=== PATIENT | female | born 1975 | race Two or more races ===

== ENCOUNTER 2018-08-24 08:31 | Emergency (ER) | payer MEDICAID ==
[~2018-08-24] VITALS: Ht 134.6 cm; Wt 70.3 kg
[2018-08-24] MEDS ORDERED: PANTOPRAZOLE 40 MG/10 ML VIAL IV STA (09:03)
[2018-08-24] MEDS ORDERED: SODIUM CHLORIDE 0.9% 1,000 ML IVB ONE (09:03)
[2018-08-24 09:13] VITALS: BP 128/83
[2018-08-24] MEDS ORDERED: ONDANSETRON HCL 4 MG/2 ML VIAL IV ONE (09:15)
[2018-08-24] MEDS ORDERED: MORPHINE SULFATE 4 MG/ML SYR/VIAL IV ONE (09:15)
[2018-08-24 09:20] LABS: Basophils # (auto) 0 uL; Basophils % (auto) 0.4 % (0.0-2.0); Eosinophils # (auto) 0.1 uL; Eosinophils % (auto) 1.6 % (0.0-7.0); Hematocrit 38.7 % (36.0-46.0); Hemoglobin 13.1 g/dL (12.2-16.2); Lymphocytes # (auto) 1.1 uL; Lymphocytes % (auto) 13.1 % (10.0-50.0); Mean Corpuscular Hemoglobin 28.6 pg (28.0-32.0); Mean Corpuscular Hgb Conc. 33.8 g/dL (32.0-36.0); Mean Corpuscular Volume 84.5 fL (80.0-100.0); Monocytes # (auto) 0.6 uL; Monocytes % (auto) 6.8 % (0.0-12.0); Neutrophils # (auto) 6.7 uL; Neutrophils % (auto) 78.1 % (37.0-80.0); Platelet Count (auto) 237 10^3/uL (140-450); Red Blood Cells 4.58 10^6/uL (4.0-5.20); Red Cell Distribution Width 13.2 % (11.8-14.3); White Blood Cell 8.5 10^3/uL (4.4-10.8)
[2018-08-24 09:26] LABS: Urine Bacteria FEW /hpf (None Seen); Urine Blood Negative /uL (Negative); Urine Mucus FEW (None Seen); Urine Specific Gravity 1.018 (1.001-1.035); Urine WBC 1 /hpf (0 - 5)
[2018-08-24 09:33] LABS: INR 0.88 (0.9-1.15); Partial Thromboplastin Time 21.9 sec (23.78-33.04); Prothrombin Time 9.5 sec (9.27-12.13)
[2018-08-24 09:40] LABS: Albumin 3.8 g/dL (3.4-5.0); BUN/Creatinine Ratio 16.7; Bilirubin, Total 0.3 mg/dL (0.2-1.0); Calcium 8.8 mg/dL (8.5-10.1); Potassium 3.7 mmol/L (3.5-5.1); Total Protein 7.6 g/dL (6.4-8.2)
== END 2018-08-24 11:11 | disposition home or self-care (01) ==
LOC: ER 08:31
DX: K29.70 Gastritis, unspecified, without bleeding (principal); E11.9 Type 2 diabetes mellitus without complications; E78.5 Hyperlipidemia, unspecified; Z98.51 Tubal ligation status; Z88.8 Allergy status to other drugs, medicaments and biological substances
CPT/HCPCS: 36415; 76705; 80053; 81001; 82150; 82962; 83690; 83735; 84702; 85025; 85610; 85730; 94761; 96361; 96374; 96375; 99285; C9113; J2270; J2405; J7030

== ENCOUNTER 2021-06-04 03:08 | Emergency (ER) | payer MEDICAID ==
[~2021-06-04] VITALS: Ht 157.5 cm; Wt 70.8 kg
[2021-06-04 03:35] LABS: Basophils # (auto) 0 10 ^3/uL (0-0.2); Basophils % (auto) 0.8 % (0.0-2.0); Eosinophils # (auto) 0.1 10 ^3/uL (0-0.8); Eosinophils % (auto) 1.5 % (0.0-7.0); Hematocrit 39.7 % (36.0-46.0); Hemoglobin 13.8 g/dL (12.2-16.2); Lymphocytes % (auto) 36.1 % (10.0-50.0); Mean Corpuscular Hemoglobin 27.9 pg (28.0-32.0); Mean Corpuscular Hgb Conc. 34.8 g/dL (32.0-36.0); Mean Corpuscular Volume 80.1 fL (80.0-100.0); Monocytes # (auto) 0.4 10 ^3/uL (0-1.3); Monocytes % (auto) 7.8 % (0.0-12.0); Neutrophils # (auto) 2.9 10 ^3/uL (1.6-8.6); Neutrophils % (auto) 53.8 % (37.0-80.0); Platelet Count (auto) 244 10^3/uL (140-450); Red Blood Cells 4.96 10^6/uL (4.0-5.20); Red Cell Distribution Width 15.4 % (11.8-14.3); White Blood Cell 5.5 10^3/uL (4.4-10.8)
[2021-06-04 03:54] LABS: Amylase 46 U/L (25-115); Lipase 241 U/L (73-393)
[2021-06-04 05:01] LABS: Urine Amorphous Crystal MANY /hpf (None Seen); Urine Bacteria FEW /hpf (None Seen); Urine Blood Negative /uL (Negative); Urine Specific Gravity 1.029 (1.001-1.035); Urine WBC 3 /hpf (0 - 5)
[2021-06-04 05:42] LABS: Albumin 4.2 g/dL (3.4-5.0); Calcium 8.9 mg/dL (8.5-10.1); Potassium 4.1 mmol/L (3.5-5.1)
[2021-06-04 05:47] LABS: Bilirubin, Total 0.3 mg/dL (0.2-1.0)
[2021-06-04] MEDS ORDERED: SODIUM CHLORIDE 0.9% 1,000 ML IV ONE ×2 (07:15)
[2021-06-04 08:05] VITALS: BP 145/77
== END 2021-06-04 08:27 | disposition home or self-care (01) ==
LOC: ER 03:08
DX: R73.9 Hyperglycemia, unspecified (principal); R51.9 Headache, unspecified; Z88.6 Allergy status to analgesic agent; Z98.51 Tubal ligation status
CPT/HCPCS: 36415; 80053; 81001; 82150; 82962; 83036; 83690; 85025; 85049; 96360; 99285; J7030

== ENCOUNTER 2022-02-11 12:17 | Emergency (ER) | payer MEDICAID ==
[~2022-02-11] VITALS: Ht 152.4 cm; Wt 66.2 kg
[2022-02-11] MEDS ORDERED: ONDANSETRON HCL 4 MG/2 ML VIAL IV ONE (12:45)
[2022-02-11] MEDS ORDERED: SODIUM CHLORIDE 0.9% 500 ML IVB ONE (12:45)
[2022-02-11] MEDS ORDERED: PANTOPRAZOLE 40 MG/10 ML VIAL INJ IV ONE (12:45)
[2022-02-11 12:55] LABS: Urine Bacteria NONE SEEN /hpf (None Seen); Urine Blood Negative /uL (Negative); Urine Mucus FEW (None Seen); Urine Specific Gravity 1.042 (1.001-1.035); Urine WBC 1 /hpf (0 - 5)
[2022-02-11 13:28] LABS: Basophils # (auto) 0.2 10 ^3/uL (0-0.2); Basophils % (auto) 2.1 % (0.0-2.0); Eosinophils # (auto) 0 10 ^3/uL (0-0.8); Eosinophils % (auto) 0.2 % (0.0-7.0); Hematocrit 39.8 % (36.0-46.0); Hemoglobin 13.7 g/dL (12.2-16.2); Lymphocytes # (auto) 0.9 10 ^3/uL (0.4-5.4); Mean Corpuscular Hemoglobin 28.3 pg (28.0-32.0); Mean Corpuscular Hgb Conc. 34.4 g/dL (32.0-36.0); Mean Corpuscular Volume 82.3 fL (80.0-100.0); Monocytes # (auto) 0.4 10 ^3/uL (0-1.3); Monocytes % (auto) 5.1 % (0.0-12.0); Neutrophils # (auto) 6.4 10 ^3/uL (1.6-8.6); Neutrophils % (auto) 81.6 % (37.0-80.0); Nucleated Red Blood Cells % 0.3 %; Red Blood Cells 4.83 10^6/uL (4.0-5.20); Red Cell Distribution Width 13.3 % (11.8-14.3); White Blood Cell 7.8 10^3/uL (4.4-10.8)
[2022-02-11 13:46] LABS: Albumin 3.9 g/dL (3.4-5.0); Calcium 9.2 mg/dL (8.5-10.1); Potassium 4.2 mmol/L (3.5-5.1)
[2022-02-11 13:49] LABS: BUN/Creatinine Ratio 20.2
[2022-02-11 13:49] LABS: Amylase 37 U/L (25-115); Lipase 95 U/L (73-393)
[2022-02-11 13:52] LABS: Bilirubin, Total 0.5 mg/dL (0.2-1.0); Total Protein 7.7 g/dL (6.4-8.2)
[2022-02-11 14:21] LABS: INR 0.97 (0.9-1.15); Partial Thromboplastin Time 23.4 sec (23.6-33.0)
[2022-02-11] MEDS ORDERED: PANT40TA2 PO (15:11)
[2022-02-11] MEDS ORDERED: ONDA-144 PO (15:11)
[2022-02-11] MEDS: MORPHINE SULFATE 4 MG/ML SYR/VIAL IV ONE ×2 (15:26→15:41)
[2022-02-11 16:44] VITALS: BP 118/74
== END 2022-02-11 16:50 | disposition home or self-care (01) ==
LOC: ER 12:17
DX: R10.11 Right upper quadrant pain (principal); K21.9 Gastro-esophageal reflux disease without esophagitis; R11.2 Nausea with vomiting, unspecified; E11.9 Type 2 diabetes mellitus without complications; E78.5 Hyperlipidemia, unspecified; Z88.8 Allergy status to other drugs, medicaments and biological substances
CPT/HCPCS: 36415; 76705; 80053; 81001; 82150; 83690; 85025; 85610; 85730; 93005; 96361; 96374; 96375; 99285; C9113; J2270; J2405; J7040

== ENCOUNTER 2024-02-21 00:26 | Inpatient (IN) | payer MEDICAID ==
[~2024-02-21] VITALS: Ht 152.4 cm; Wt 69.0 kg
[~2024-02-21 00:26] MED LIST: ONDA-144 PO; PANT40TA2 PO
[2024-02-21 00:59] LABS: Urine WBC None Seen /hpf (0 - 5)
[2024-02-21 01:05] LABS: Urine Bacteria NONE SEEN /hpf (None Seen); Urine Blood Negative /uL (Negative); Urine Clarity Clear (Clear); Urine Color Colorless (Yellow); Urine Protein, UAD Negative (Negative); Urine Specific Gravity 1.003 (1.001-1.035); Urine Urobilinogen Normal (Negative); Urine pH 6.5 (5.0-8.0)
[2024-02-21] MEDS: MORPHINE SULFATE 4 MG/ML SYR/VIAL IM ONE (01:41)
[2024-02-21] MEDS: ONDANSETRON HCL 4 MG/2 ML VIAL IM ONE (01:41)
[2024-02-21 02:17] LABS: Basophils # (auto) 0 10 ^3/uL (0-0.2); Basophils % (auto) 0.3 % (0.0-2.0); Eosinophils # (auto) 0 10 ^3/uL (0-0.8); Eosinophils % (auto) 0.3 % (0.0-7.0); Hematocrit 38.2 % (36.0-46.0); Hemoglobin 12.8 g/dL (12.2-16.2); Lymphocytes # (auto) 1.9 10 ^3/uL (0.4-5.4); Lymphocytes % (auto) 20.6 % (10.0-50.0); Mean Corpuscular Hemoglobin 27.5 pg (28.0-32.0); Mean Corpuscular Hgb Conc. 33.6 g/dL (32.0-36.0); Mean Corpuscular Volume 81.9 fL (80.0-100.0); Monocytes # (auto) 0.5 10 ^3/uL (0-1.3); Monocytes % (auto) 5.6 % (0.0-12.0); Neutrophils # (auto) 6.9 10 ^3/uL (1.6-8.6); Neutrophils % (auto) 73.2 % (37.0-80.0); Red Blood Cells 4.67 10^6/uL (4.0-5.20); Red Cell Distribution Width 13.2 % (11.8-14.3); White Blood Cell 9.4 10^3/uL (4.4-10.8)
[2024-02-21] MEDS: SODIUM CHLORIDE 0.9% 1,000 ML IV ONE (02:27)
[2024-02-21 02:29] LABS: Alanine Aminotransferase 51 U/L (7-40); Albumin 4.8 g/dL (3.2-4.8); Alkaline Phosphatase 77 U/L (46-116); Anion Gap 8 (5-15); Aspartate Aminotransferase 22 U/L (13-40); BUN/Creatinine Ratio 15.7 (10.0-20.0); Bilirubin, Total 0.7 mg/dL (0.2-1.0); Blood Urea Nitrogen 11 mg/dL (9-23); Calcium 10.2 mg/dL (8.7-10.4); Carbon Dioxide 24 mmol/L (20-30); Chloride 104 mmol/L (98-107); Glucose 131 mg/dL (74-106); Potassium 3.6 mmol/L (3.5-5.1); Sodium 136 mmol/L (136-145); Total Protein 7.5 g/dL (5.7-8.2)
[2024-02-21 02:31] LABS: Lactic Acid w/Reflex 2.6 mmol/L (0.4-2.0)
[2024-02-21 02:33] LABS: INR 0.97 (0.9-1.15); Partial Thromboplastin Time 27.1 SEC (24.5-34.5); Prothrombin Time 10.2 sec (9.3-11.8)
[2024-02-21] MEDS: PIPERACILLIN-TAZO 4.5GM 100 ML IV ONE (02:51)
[2024-02-21] MEDS: PIPERACILLIN-TAZOB 2.25GM 50 ML IV ONE ×2 (02:59→06:19)
[2024-02-21] MEDS: HYDROmorphone HCL 2 MG/ML VL/or syr IV ONE (03:00)
[2024-02-21 06:00] VITALS: PULSE 95; RESP 18; O2SAT 100
[2024-02-21] MEDS: SODIUM CHLORIDE 0.9% 1,000 ML IV SCH (06:19)
[2024-02-21] MEDS: ONDANSETRON HCL 4 MG/2 ML VIAL IV PRN (08:18)
[2024-02-21] MEDS: MORPHINE SULFATE INJ 2 MG/ml SYRG IV PRN (08:19)
[2024-02-21] MEDS ORDERED: METF-372 PO (09:57)
[2024-02-21] MEDS ORDERED: LORA-483 PO (09:57)
[2024-02-21] MEDS ORDERED: HYDR200T36 PO (10:00)
[2024-02-21] MEDS ORDERED: KETAMINE 50mg/ML 10ml Vial 10 ML ONE (11:03)
[2024-02-21] MEDS ORDERED: MEPERIDINE HCL (50 MG/ML) 1 ML VIAL ONE (11:03)
[2024-02-21] MEDS ORDERED: MIDAZOLAM HCL 2MG/2ML 2ml VIAL (1mg/ml) ONE (11:03)
[2024-02-21] MEDS ORDERED: fentaNYL CITRATE 100 MCG/2 ML VL ONE (11:03)
[2024-02-21] MEDS ORDERED: ROCURONIUM 10MG/ML 10ML VIAL IV ONE (11:04)
[2024-02-21] MEDS ORDERED: DexAMETHasone SOD PHOS 10MG/1ML VIAL INJ ONE (11:04)
[2024-02-21] MEDS ORDERED: PROPOFOL 10 MG/ML 20 ML IV ONE (11:04)
[2024-02-21] MEDS ORDERED: ONDANSETRON HCL 4 MG/2 ML VIAL ONE (11:04)
[2024-02-21] MEDS ORDERED: SODIUM CHLORIDE LOCK 10 ML ONE (11:04)
[2024-02-21] MEDS ORDERED: NEOSTIGMINE 1 MG/ML INJ (10mg/10ML VIAL) ONE (11:04)
[2024-02-21] MEDS ORDERED: GLYCOPYRROLATE 0.2 MG/ML 1ML VIAL ONE (11:04)
[2024-02-21 13:00] VITALS: BP 112/60; PULSE 90; RESP 17; TEMP 98.3; O2SAT 98
[2024-02-21] MEDS ORDERED: HYDROmorphone HCL 2 MG/ML VL/or syr IV PRN ×2 (13:00)
[2024-02-21] MEDS ORDERED: MORPHINE SULFATE INJ 2 MG/ml SYRG IV PRN (13:00)
[2024-02-21] MEDS: PIPERACILLIN-TAZOB 3.375GM 100 ML IV SCH (13:03)
[2024-02-21] MEDS ORDERED: SUGAMMADEX 200mg/2ml Vial (100MG/ML) IV ONE (14:20)
[2024-02-21 14:35] VITALS: PULSE 89; RESP 13; O2SAT 97
[2024-02-21 17:00] VITALS: BP 127/75; PULSE 95; RESP 17; TEMP 98; O2SAT 97
[2024-02-21] MEDS: METOCLOPRAMIDE HCL 5MG/ml INJ 2ml VIAL IV ONE (17:25)
[2024-02-21] MEDS: ACCU-CHEK COMFORT CURVE STRIP VI ONE (17:26)
[2024-02-21] MEDS: D5W/SOD CHL 0.45%/KCL 20MEQ 1,000 ML IV SCH (17:26)
[2024-02-21 21:00] VITALS: BP 129/59; PULSE 68; RESP 14; TEMP 97.8; O2SAT 95
[2024-02-22] VITALS (8 sets, daily range): BP systolic 105–133; BP diastolic 62–92; PULSE 75–104; RESP 14–20; TEMP 97.5–98.5; O2SAT 97–100
[2024-02-22 06:08] LABS: Basophils # (auto) 0 10 ^3/uL (0-0.2); Basophils % (auto) 0.1 % (0.0-2.0); Eosinophils # (auto) 0 10 ^3/uL (0-0.8); Hematocrit 33.8 % (36.0-46.0); Hemoglobin 11.3 g/dL (12.2-16.2); Lymphocytes # (auto) 0.9 10 ^3/uL (0.4-5.4); Lymphocytes % (auto) 13.5 % (10.0-50.0); Mean Corpuscular Hemoglobin 27.9 pg (28.0-32.0); Mean Corpuscular Hgb Conc. 33.6 g/dL (32.0-36.0); Monocytes # (auto) 0.5 10 ^3/uL (0-1.3); Monocytes % (auto) 6.6 % (0.0-12.0); Neutrophils # (auto) 5.6 10 ^3/uL (1.6-8.6); Neutrophils % (auto) 79.8 % (37.0-80.0); Red Blood Cells 4.06 10^6/uL (4.0-5.20); Red Cell Distribution Width 13.2 % (11.8-14.3)
[2024-02-22 06:26] LABS: Alanine Aminotransferase 33 U/L (7-40); Albumin 4.1 g/dL (3.2-4.8); Alkaline Phosphatase 63 U/L (46-116); Anion Gap 4 (5-15); Aspartate Aminotransferase 9 U/L (13-40); BUN/Creatinine Ratio 7.6 (10.0-20.0); Bilirubin, Total 0.5 mg/dL (0.2-1.0); Blood Urea Nitrogen 5 mg/dL (9-23); Calcium 8.8 mg/dL (8.7-10.4); Carbon Dioxide 26 mmol/L (20-30); Chloride 110 mmol/L (98-107); Glucose 179 mg/dL (74-106); Potassium 4.1 mmol/L (3.5-5.1); Sodium 140 mmol/L (136-145); Total Protein 6.5 g/dL (5.7-8.2)
[2024-02-23 01:00] VITALS: BP 130/60; PULSE 86; RESP 21; TEMP 98.4; O2SAT 98
[2024-02-23 05:00] VITALS: BP 114/70; PULSE 70; RESP 20; TEMP 97.6; O2SAT 98
[2024-02-23 08:00] VITALS: PULSE 87; RESP 16; O2SAT 99
[2024-02-23 09:16] VITALS: BP 122/78; PULSE 87; RESP 16; TEMP 97.9; O2SAT 99
[2024-02-23] MEDS ORDERED: LEVO500T91 PO (10:31)
[2024-02-23] MEDS ORDERED: METR-344 PO (10:31)
[2024-02-23 11:02] VITALS: BP 122/78; PULSE 87; RESP 16; TEMP 97.9; O2SAT 99
[2024-02-23 13:29] VITALS: BP 128/78; PULSE 77; RESP 17; TEMP 98.2; O2SAT 98
== END 2024-02-23 13:57 | disposition home or self-care (01) | DRG 234 ==
LOC: ER 00:26 → OVERFLOW 04:35 → CENTRAL 10:18
PROVIDERS: ADMIT Nurse Practitioner; ATTEND Internal Medicine
PROC: 0DTJ4ZZ Resection of Appendix, Percutaneous Endoscopic Approach (ICD-10-PCS; principal; 2024-02-21 13:58)
DX: K35.80 Unspecified acute appendicitis (principal); R16.0 Hepatomegaly, not elsewhere classified; E11.9 Type 2 diabetes mellitus without complications; K59.00 Constipation, unspecified; E78.5 Hyperlipidemia, unspecified; Z82.49 Family history of ischemic heart disease and other diseases of the circulatory system; Z83.3 Family history of diabetes mellitus; Z79.84 Long term (current) use of oral hypoglycemic drugs; Z88.6 Allergy status to analgesic agent
CPT/HCPCS: 36415; 74176; 76705; 80053; 81001; 82962; 83605; 84702; 85025; 85610; 85730; 86850; 86900; 86901; 96365; 96366; 96372; 96375; G0378; J1100; J2250; J2405; J2543; J2704

== ENCOUNTER 2024-10-26 00:08 | Emergency (ER) | payer MEDICAID ==
[~2024-10-26] VITALS: Ht 152.4 cm; Wt 72.0 kg
[~2024-10-26 00:08] MED LIST changes: +HYDR200T36 PO; +LEVO500T91 PO; +LORA-483 PO; +METF-372 PO; +METR-344 PO
[2024-10-26 00:37] LABS: Urine Bacteria None Seen /hpf (None Seen)
[2024-10-26 00:43] LABS: Urine Blood Negative /uL (Negative); Urine Clarity Clear (Clear); Urine Color Light-Yellow (Yellow); Urine Protein, UAD Negative (Negative); Urine Specific Gravity 1.015 (1.001-1.035); Urine Urobilinogen Normal (Negative); Urine WBC 1 /hpf (0 - 5); Urine pH 6.5 (5.0-9.0)
[2024-10-26 00:51] VITALS: BP 120/88; PULSE 99; RESP 18; TEMP 98; O2SAT 98
[2024-10-26] MEDS: ONDANSETRON ODT 4 MG TAB PO ONE (00:51)
[2024-10-26] MEDS: KETOROLAC TROMETH 60MG/2ML VIAL IM ONE (00:58)
--- NOTE | 2024-10-26 01:19 | DVH ---
Exam: CT CT AB PEL WO CON-NO ORAL OR IV History: Left sided flank pain Comparison Study: CT CT AB PEL WO CON-NO ORAL OR IV on DOS: 02/21/24 Technique: Multidetector spiral CT of the abdomen was performed from lung bases to pubic symphysis. Imaging was performed without IV contrast. Axial, coronal and sagittal multiplanar reformats were ob tained from the axial data set by the technologist. Radiation Dose : 1. Abdomen/Pelvis: CTDIvol 9.53 mGy, DLP 593 mGy*cm. Findings: Evaluation of solid organs is limited due to lack of intravenous contrast use. Lung Bases: No acute or significant lung base finding. Normal heart size. No pleural or pericardial effusion. Liver: The liver is enlarged measuring up to 21 cm. No focal lesions. Diffuse steatosis. Wedge-shape d hyperdensity in the posterior right hepatic lobe measures up to 5.5 cm. Gallbladder and Biliary Tree: Unremarkable Spleen: Unremarkable Pancreas: The pancreas is grossly normal in appearance. Adrenal Glands: Unremarkable Kidneys: Kidneys are grossly normal without calculi or hydronephrosis. Bladder: Grossly unremarkable for degree of distention. Bowel: The stomach is grossly normal in appearance. Small bowel and colon are normal in caliber and d istribution. The appendix is not visualized; however, no secondary findings of acute appendicitis id entified. Ascites: Absent Lymphadenopathy: No mesenteric, retroperitoneal or periportal lymphadenopathy. Abdominal Wall and Mesentery: Unremarkable. Vasculature: The visualized abdominal aorta is normal in size and caliber. Evaluation of abdominal a nd pelvic vessels is limited due to lack of intravenous contrast. Pelvic Organs: Unremarkable Musculoskeletal: No aggressive focal bony lesions, acute fractures or dislocation. IMPRESSION: 1. No acute abdominal or pelvic findings. 2. Wedge-shaped in the posterior right hepatic lobe measures up to 4.5 cm, of unclear etiology. Thomas mmend triple phase abdominal CT for further evaluation. 3. Hepatomegaly with steatosis. Radiation optimization: All CT scans at this facility use at least one of these dose optimization shalini hniques: automated exposure control mA and/or kV adjustment per patient size (includes targeted exam s where dose is matched to clinical indication) or iterative reconstruction.
[2024-10-26] MEDS ORDERED: ACET500T58 PO (01:28)
[2024-10-26] MEDS ORDERED: ZOFR4T PO (01:28)
--- NOTE | 2024-10-26 01:29 | ED.PDOC ---
General HPI Comments This patient is a pleasant but morbidly obese 49-year-old [place]ian-speaking only female who arrives to the ED today for evaluation of left-sided flank pain concerns that began three days ago and have continued. Patient additionally complains of some urinary discomfort. Patient states pain and chills throughout. Patient denies any fever nausea or vomiting. Vital signs were stable on arrival. Chief Complaint: Back Pain Time Seen by MD: 00:14 Primary Care Provider: NONE Reviewed notes: Nurses Notes Allergies: Coded Allergies: Ibuprofen (Verified Allergy, Unknown, 08/24/18) Home Meds Active Scripts Levofloxacin Hemihydrate (LEVAQUIN 500 MG) 500 Mg Tab, 1 TAB PO DAILY, #7 TAB Prov:ALINA PARISI MD 02/23/24 Metronidazole (Flagyl) 500 Mg Tab, 1 TAB PO TID, #21 TAB Prov:ALINA PARISI MD 02/23/24 Ondansetron (Zofran) 4 Mg Tab, 1 TAB PO Q6HR, #20 TAB Prov:NIURKA OSBORNE MD 02/11/22 Pantoprazole Sodium Sesquihydr (Protonix) 40 Mg Tab, 40 MG PO DAILY, #30 TAB Prov:NIURKA OSBORNE MD 02/11/22 Reported Medications Hydroxychloroquine Sulfate (Hydroxychloroquine Sulfat) 200 Mg Tab, 1 TAB PO DAILY 02/21/24 Loratadine (CLARITIN TABLET) 10 Mg Tb, 1 TAB PO DAILYPRN PRN for allergies 02/21/24 Metformin Hydrochloride (Metformin Hcl) 1,000 Mg Tab, 1 TAB PO BID 02/21/24 Information Source: Patient, Friend Mode of Arrival: Ambulatory Severity: Moderate Timing: Days Duration: Since onset Prehospital treatment: None Onset: Spontaneous Symptoms: Dysuria History of: None Location: (L)Flank associated signs and symptoms: Flank Pain, Other (Chills) Past Medical History PAST MEDICAL HISTORY: DM, High Lipids Surgical History: BTL, 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 Pertinent CHILDREN'S INSTITUTION ATTENDANT History Family History Family History: Family hx of DM, Family hx of heart adán, Family hx of HTN Social History Smoker: Non-Smoker Alcohol: Denies ETOH Use Drugs: Denies Drug Use Lives In: Home Constitutional: reports: chills; denies: diaphoresis, fatigue, fever, malaise, sweats, weakness, others EENTM: denies: blurred vision, double vision, ear bleeding, ear discharge, ear drainage, ear pain, ear ringing, eye pain, eye redness, hearing loss, mouth pain, mouth swelling, nasal discharge, nose bleeding, nose congestion, nose pain, photophobia, tearing, throat pain, throat swelling, voice changes, others Respiratory: denies: cough, hemoptysis, orthopnea, SOB at rest, shortness of breath, SOB with excertion, stridor, wheezing, others Cardiovascular: denies: chest pain, dizzy spells, diaphoresis, Dyspnea on exertion, edema, irregular heart beat, left arm pain, lightheadedness, palpi tations, PND, syncope, others Gastrointestinal: denies: abdomen distended, abdominal pain, blood streaked bowels, constipated, diarrhea, dysphagia, difficulty swallowing, hematemesis, melena, nausea, poor appetite, poor fluid intake, rectal bleeding, rectal pain, vomiting, others Genitourinary: reports: flank pain; denies: abnormal vagina bleeding, burning, dyspareunia, dysuria, frequency, hematuria, incontinence, pain, , vagina discharge, urgency, others Neurological: denies: dizziness, fainting, headache, left sided numbness, left sided weakness, numbness, paresthesia, pre-existing deficit, right sided numbness, right sided weakness, seizure, speech problems, tingling, tremors, weakness, others Musculoskeletal: denies: back pain, gout, joint pain, joint swelling, muscle pain, muscle stiffness, neck pain, others Integumetry: denies: bruises, change in color, change in hair/nails, dryness, laceration, lesions, lumps, rash, wounds, others Allergic/Immunocompromised: denies: Difficulty Healing, Frequent Infections, Hives, Itching, others Hematologic/Lymphatic: denies: anemia, blood clots, easy bleeding, easy bruising, swollen glands, others Endocrine: denies: excessive hunger, excessive sweating, excessive thirst, excessive urination, flushing, intolerance to cold, intolerance to heat, unexplained weight gain, unexplained weight loss, others Psychiatric: denies: anxiety, bipolar disorder, depression, hopeless, panic disorder, schizophrenia, sleepless, suicidal, others Physical Exam General Appearance: Moderate Distress (Due to left-sided flank pain concerns.), Obese HEENT: Normal ENT Inspection, Pharynx Normal, TMs Normal Neck: Full Range of Motion, Non-Tender, Normal, Normal Inspection Respiratory: Chest Non-Tender, Lungs Clear, No Accessory Muscle Use, No Respiratory Distress, Normal Breath Sounds Cardiovascular: No Edema, No JVD, No Murmur, No Gallop, Normal Peripheral Pulses, Regular Rate/Rhythm Breast Exam: Deferred Gastrointestinal: Other (Diffuse left-sided CVA tenderness. Heel drop test was unremarkable. 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 Was a procedure done?: No Differential Diagnosis Kidney stone (Female): Other (Kidney stone, pyelonephritis, UTI, musculoskeletal strain) X-Ray, Labs, Meds, VS Vital Signs Date Time Temp Pulse Resp B/P (MAP) Pulse Ox O2 Delivery O2 Flow Rate FiO2 10/26/24 00:51 99 18 98 Room Air 10/26/24 00:51 98.0 99 18 120/88 (99) 98 98.0 10/26/24 00:16 98.0 99 18 120/88 (99) 98 Lab Test 10/26/24 00:15 Range/Units Urine Color Light-yellow Yellow Urine Clarity Clear Clear Urine pH 6.5 5.0-9.0 Urine Specific [place] 1.015 1.001-1.035 Urine Protein Negative Negative Urine Ketones Negative Negative Urine Blood Negative Negative /uL Urine Nitrite Negative Negative Urine Bilirubin Negative Negative Urine Urobilinogen Normal Negative mg/dL Urine Leukocyte Esterase Trace Negative /uL Urine RBC 1 0 - 4 /hpf Urine WBC 1 0 - 5 /hpf Urine Squamous Epithelial Cells Few <5 /hpf Urine Bacteria None seen None Seen /hpf Urine Glucose Normal Normal mg/dL Current Medications Medications (Trade) Dose Ordered Sig/Annmarie Route Start Time Stop Time Status Last Admin Ketorolac Tromethamine (Toradol Injection) 30 mg ONCE ONCE IM 10/26/24 00:30 10/26/24 00:31 DC 10/26/24 00:58 X-Ray, Labs, Meds, VS Comment All studies performed the ED were evaluated by me personally. Urine was unremarkable for any UTI or pyelonephritis. CT imaging of the abdomen was unremarkable for any kidney stone formation or hydronephrosis. Patient appears to be suffering from a musculoskeletal back strain concern. Advised patient utilize medication as needed for symptomatic relief. Time of 1ST Reevaluation: Reevaluation 1ST: Improved Consultation: PCP Patient Education/Counseling: Diagnosis, Treatment Family Education/Counseling: Diagnosis, Treatment Departure 1 Departure Time of Disposition: Impression: Primary Impression: Low back pain Disposition: HOME / SELF CARE / HOMELESS Condition: Stable Additional Instructions: Advised patient utilize pain medication as needed for symptomatic relief. If symptoms continue, patient will need to follow up with primary care provider for continued evaluation. e-Prescriptions Ondansetron Odt 4MG Tab (ZOFRAN PO) 4 Mg Tb 4 MG PO Q6HP PRN, #15 TAB ODT TAB-DISSOLVE IN MOUTH, THEN SWALLOW Prov: DEE DEE ABREU PAC 10/26/24 Acetaminophen (Acetaminophen) 500 Mg Tab 500 MG PO Q4HP PRN, #20 TAB Prov: DEE DEE ABREU PAC 10/26/24 Discharged With: Self, Friend Critical Care Note Critical Care Time?: No Stability Stability form required: No Heart Score Heart Score: Heart Score Response (Comments) Value History N/A 0 EKG N/A 0 Age N/A 0 Risk Factors N/A 0 Troponin N/A 0 Total 0 DEE DEE ABREU PAC Oct 26, 2024 01:29
== END 2024-10-26 02:10 | disposition home or self-care (01) ==
LOC: ER 00:08
DX: M54.59 Other low back pain (principal); E11.9 Type 2 diabetes mellitus without complications; E78.5 Hyperlipidemia, unspecified; Z79.899 Other long term (current) drug therapy; Z88.6 Allergy status to analgesic agent; Z98.890 Other specified postprocedural states
CPT/HCPCS: 74176; 81001; 96372; 99285; J1885

== ENCOUNTER 2025-03-28 22:26 | Emergency (ER) | payer MEDICAID ==
[~2025-03-28] VITALS: Ht 154.9 cm; Wt 69.9 kg
[~2025-03-28 22:26] MED LIST changes: +ACET500T58 PO; +ZOFR4T PO
--- NOTE | 2025-03-28 22:49 | ED.PDOC ---
GI ASSESSMENT HPI Comments 49-year-old female came to ER due to pelvic pain. Patient states for the past 3 days, she has been experiencing lower back pains, suprapubic abdominal pains, nausea and headaches. Denies any urinary symptoms such as dysuria or hematuria. Denies any vaginal bleeding. Chief Complaint: Pelvic Time Seen by MD: 22:49 Primary Care Provider: NONE Reviewed Notes: Nurses Notes Allergies: Coded Allergies: Ibuprofen (Verified Allergy, Unknown, 08/24/18) Home Meds Active Scripts Ondansetron Odt 4MG Tab (ZOFRAN PO) 4 Mg Tb, 4 MG PO Q6HP PRN, #15 TAB ODT TAB-DISSOLVE IN MOUTH, THEN SWALLOW Prov:DEE DEE ABREU PAC 10/26/24 Acetaminophen (Acetaminophen) 500 Mg Tab, 500 MG PO Q4HP PRN, #20 TAB Prov:DEE DEE ABREU PAC 10/26/24 Levofloxacin Hemihydrate (LEVAQUIN 500 MG) 500 Mg Tab, 1 TAB PO DAILY, #7 TAB Prov:ALINA PARISI MD 02/23/24 Metronidazole (Flagyl) 500 Mg Tab, 1 TAB PO TID, #21 TAB Prov:ALINA PARISI MD 02/23/24 Ondansetron (Zofran) 4 Mg Tab, 1 TAB PO Q6HR, #20 TAB Prov:NIURKA OSBORNE MD 02/11/22 Pantoprazole Sodium Sesquihydr (Protonix) 40 Mg Tab, 40 MG PO DAILY, #30 TAB Prov:NIURKA OSBORNE MD 02/11/22 Reported Medications Hydroxychloroquine Sulfate (Hydroxychloroquine Sulfat) 200 Mg Tab, 1 TAB PO DAILY 02/21/24 Loratadine (CLARITIN TABLET) 10 Mg Tb, 1 TAB PO DAILYPRN PRN for allergies 02/21/24 Metformin Hydrochloride (Metformin Hcl) 1,000 Mg Tab, 1 TAB PO BID 02/21/24 Information Source: Patient Mode of Arrival: Ambulatory Timing: Hours Duration: Since onset Prehospital treatment: None Quality: Aching Vomitus: None Stool: Normal Severity: Moderate Recent: None Recent Hx of: None Pain Location: Suprapubic Associated sign and symptoms: Nausea, Abdominal Pain Past Medical History PAST MEDICAL HISTORY: DM, High Lipids Surgical History: Appendectomy, BTL, 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 AUTO PAINTER History Family History Family History: Family hx of DM, Family hx of heart adán, Family hx of HTN Social History Smoker: Non-Smoker Alcohol: Denies ETOH Use Drugs: Denies Drug Use Lives In: Home Constitutional: denies: chills, diaphoresis, fatigue, fever, malaise, sweats, weakness, others EENTM: denies: blurred vision, double vision, ear bleeding, ear discharge, ear drainage, ear pain, ear ringing, eye pain, eye redness, hearing loss, mouth pain, mouth swelling, nasal discharge, nose bleeding, nose congestion, nose pain, photophobia, tearing, throat pain, throat swelling, voice changes, others Respiratory: denies: cough, hemoptysis, orthopnea, SOB at rest, shortness of breath, SOB with excertion, stridor, wheezing, others Cardiovascular: denies: chest pain, dizzy spells, diaphoresis, Dyspnea on exertion, edema, irregular heart beat, left arm pain, lightheadedness, palpitations, PND, syncope, others Gastrointestinal: reports: abdominal pain, nausea; denies: abdomen distended, b lood streaked bowels, constipated, diarrhea, dysphagia, difficulty swallowing, hematemesis, melena, poor appetite, poor fluid intake, rectal bleeding, rectal pain, vomiting, others Genitourinary: denies: abnormal vagina bleeding, burning, dyspareunia, dysuria, flank pain, frequency, hematuria, incontinence, pain, , vagina discharge, urgency, others Neurological: reports: headache; denies: dizziness, fainting, left sided numbness, left sided weakness, numbness, paresthesia, pre-existing deficit, right sided numbness, right sided weakness, seizure, speech problems, tingling, tremors, weakness, others Musculoskeletal: reports: back pain; denies: gout, joint pain, joint swelling, muscle pain, muscle stiffness, neck pain, others Integumetry: denies: bruises, change in color, change in hair/nails, dryness, laceration, lesions, lumps, rash, wounds, others Allergic/Immunocompromised: denies: Difficulty Healing, Frequent Infections, Hives, Itching, others Hematologic/Lymphatic: denies: anemia, blood clots, easy bleeding, easy bruising, swollen glands, others Endocrine: denies: excessive hunger, excessive sweating, excessive thirst, excessive urination, flushing, intolerance to cold, intolerance to heat, unexplained weight gain, unexplained weight loss, others Psychiatric: denies: anxiety, bipolar disorder, depression, hopeless, panic disorder, schizophrenia, sleepless, suicidal, others Physical Exam General Appearance: No Apparent Distress, Normal HEENT: Normal ENT Inspection, Pharynx Normal, TMs Normal Neck: Full Range of Motion, Non-Tender, Normal, Normal Inspection Respiratory: Chest Non-Tender, Lungs Clear, No Accessory Muscle Use, No Respiratory Distress, Normal Breath Sounds Cardiovascular: No Edema, No JVD, No Murmur, No Gallop, Normal Peripheral Pulses, Regular Rate/Rhythm Breast Exam: Deferred Gastrointestinal: No Organomegaly, No Pulsatile Mass, Normal Bowel Sounds, Soft, Suprapubic, Tenderness Genitalia: Deferred Pelvic: Deferred Rectal: Deferred Extremities: No calf tenderness, Normal capillary refill, Normal inspection, Normal range of motion, Non-tender, No pedal edema Musculoskeletal : Apperance: Normal Neurologic: Alert, 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 Was a procedure done?: No GI differential Dx Differential Diagnosis: Constipation, Diverticular disease, Gastritis/PUD, Gastroenteritis, Ovarian cyst/torsion, UTI, Urolithiasis X-Ray, Labs, Meds, VS Vital Signs Date Time Temp Pulse Resp B/P (MAP) Pulse Ox O2 Delivery O2 Flow Rate FiO2 03/28/25 23:34 Room Air* 0 21 03/28/25 23:34 97.9 100 18 126/72 (90) 99 97.9 03/28/25 22:42 97.9 100 18 126/72 (90) 99 97.9 Lab Test 03/28/25 22:54 03/28/25 22:37 Range/Units White Blood Count 4.6 4.4-10.8 10^3/uL Red Blood Count 4.59 4.0-5.20 10^6/uL Hemoglobin 12.8 12.2-16.2 g/dL Hematocrit 37.9 36.0-46.0 % Mean Corpuscular Volume 82.5 80.0-100.0 fL Mean Corpuscular Hemoglobin 27.8 L 28.0-32.0 pg Mean Corpuscular Hemoglobin Concent 33.8 32.0-36.0 g/dL Red Cell Distribution Width 14.2 11.8-14.3 % Platelet Count 266 140-450 10^3/uL Mean Platelet Volume 7.9 6.9-10.8 fL Neutrophils (%) (Auto) 47.9 37.0-80.0 % Lymphocytes (%) (Auto) 42.9 10.0-50.0 % Monocytes (%) (Auto) 7.8 0.0-12.0 % Eosinophils (%) (Auto) 0.8 0.0-7.0 % Basophils (%) (Auto) 0.6 0.0-2.0 % Neutrophils # (Auto) 2.2 1.6-8.6 10 ^3/uL Lymphocytes # (Auto) 2.0 0.4-5.4 10 ^3/uL Monocytes # (Auto) 0.4 0-1.3 10 ^3/uL Eosinophils # (Auto) 0 0-0.8 10 ^3/uL Basophils # (Auto) 0 0-0.2 10 ^3/uL Nucleated Red Blood Cells 0.2 % Sodium Level 140 136-145 mmol/L Potassium Level 4.0 3.5-5.1 mmol/L Chloride Level 104 98-107 mmol/L Carbon Dioxide Level 29 20-31 mmol/L Anion Gap 7 5-15 Blood Urea Nitrogen 16 9-23 mg/dL Creatinine 0.82 0.550-1.02 mg/dL Glomerular Filtration Rate Calc 87 >90 mL/min BUN/Creatinine Ratio 19.5 10.0-20.0 Serum Glucose 118 H 74-106 mg/dL Calcium Level 10.5 H 8.7-10.4 mg/dL Troponin I High Sensitivity < 3 L </=34 ng/L Urine Color Colorless Yellow Urine Clarity Clear Clear Urine pH 5.5 5.0-9.0 Urine Specific [place] 1.007 1.001-1.035 Urine Protein Negative Negative Urine Ketones Negative Negative Urine Blood Negative Negative /uL Urine Nitrite Negative Negative Urine Bilirubin Negative Negative Urine Urobilinogen Normal Negative mg/dL Urine Leukocyte Esterase Negative Negative /uL Urine RBC <1 0 - 4 /hpf Urine Microscopic WBC 1 0-5 /HPF Urine Squamous Epithelial Cells Few <5 /hpf Urine Bacteria None seen None Seen /hpf Urine Glucose Normal Normal mg/dL Time of 1ST Reevaluation: 22:44 Reevaluation 1ST: Unchanged Patient Education/Counseling: Diagnosis, Treatment Family Education/Counseling: No Family Present Departure 1 Departure Time of Disposition: 01:38 (Patient presented with abdominal pain that was concerning for possible appendicits, gastritis, cholecystitis, colitis, gastroenteritis, or orther possible surgical emergency. Data: 1. I ordered and reviewed the result of at least 3 labs including a CBC, BMP, and Urinalysis. 2. I independently interpreted the following tests: CT Abdoment and Pelvis is concerning for benign abdomen .Risk:This patient has a high risk of morbidity due to further diagnostic testing or treatment and may suffer from an acute abdominal process disorder. Fortunately workup reveals gastroenteritis and patient can be safely discharged to home with outpatient follow up.) Impression: Primary Impression: Gastroenteritis Disposition: 01 HOME / SELF CARE / HOMELESS Condition: Stable Additional Instructions: You likely have gastroenteritis. Your blood work and CT scan were benign. It is important to stay well hydrated and well rested. This usually resolves within 1 week. If your symptoms worsen or you have any other concerns please return to the ER. Discharged With: Self Critical Care Note Critical Care Time?: No Stability Stability form required: No Heart Score Heart Score: Heart Score Response (Comments) Value History N/A 0 EKG N/A 0 Age N/A 0 Risk Factors N/A 0 Troponin N/A 0 Total 0 I personally scribed for EZE SALAS MD ([email or web address]) on 03/28/25 at 22:49. Electronically submitted by Keyur Fox ([email or web address]). EZE SALAS MD March 28, 2025 22:49
[2025-03-28 22:57] LABS: Urine Bacteria None Seen /hpf (None Seen)
[2025-03-28 23:05] LABS: Urine Blood Negative /uL (Negative); Urine Clarity Clear (Clear); Urine Color Colorless (Yellow); Urine Protein, UAD Negative (Negative); Urine Specific Gravity 1.007 (1.001-1.035); Urine Squamous Epithelial Cell FEW /hpf (<5); Urine Urobilinogen Normal (Negative); Urine WBC 1 /HPF (0-5); Urine pH 5.5 (5.0-9.0)
[2025-03-28 23:09] LABS: Basophils # (auto) 0 10 ^3/uL (0-0.2); Basophils % (auto) 0.6 % (0.0-2.0); Eosinophils # (auto) 0 10 ^3/uL (0-0.8); Eosinophils % (auto) 0.8 % (0.0-7.0); Hematocrit 37.9 % (36.0-46.0); Hemoglobin 12.8 g/dL (12.2-16.2); Lymphocytes % (auto) 42.9 % (10.0-50.0); Mean Corpuscular Hemoglobin 27.8 pg (28.0-32.0); Mean Corpuscular Hgb Conc. 33.8 g/dL (32.0-36.0); Mean Corpuscular Volume 82.5 fL (80.0-100.0); Monocytes # (auto) 0.4 10 ^3/uL (0-1.3); Monocytes % (auto) 7.8 % (0.0-12.0); Neutrophils # (auto) 2.2 10 ^3/uL (1.6-8.6); Neutrophils % (auto) 47.9 % (37.0-80.0); Nucleated Red Blood Cells % 0.2 %; Platelet Count (auto) 266 10^3/uL (140-450); Red Blood Cells 4.59 10^6/uL (4.0-5.20); Red Cell Distribution Width 14.2 % (11.8-14.3); White Blood Cell 4.6 10^3/uL (4.4-10.8)
[2025-03-28 23:22] LABS: Chloride 104 mmol/L (98-107); Sodium 140 mmol/L (136-145)
[2025-03-28 23:23] LABS: Anion Gap 7 (5-15); Carbon Dioxide 29 mmol/L (20-31)
[2025-03-28 23:24] LABS: Calcium 10.5 mg/dL (8.7-10.4)
[2025-03-28 23:28] LABS: BUN/Creatinine Ratio 19.5 (10.0-20.0); Blood Urea Nitrogen 16 mg/dL (9-23)
[2025-03-28 23:30] LABS: Glucose 118 mg/dL (74-106)
--- NOTE | 2025-03-29 01:18 | DVH ---
Exam: CT CT AB PEL WITH IV CON ONLY History: lower abdominal pain COMPARISON: None Technique: Multidetector spiral CT of the abdomen and pelvis was performed from lung bases to pubic s ymphysis. Intravenous contrast was administered during this examination. Portal venous imaging was o btained. Axial, coronal and sagittal multiplanar reformats were performed by the technologist on a [employer] workstation. Radiation Dose : 1. Abdomen/Pelvis: CTDIvol 12.42 mGy, DLP 753.51 mGy*cm. CONTRAST: Type of contrast: Omniscan 300 Contrast injected: 100 ml Contrast ingested: None Findings: Lung Bases: No acute or significant lung base finding. Normal heart size. No pleural or pericardial effusion. Liver: The liver is normal in size. Mild diffuse hepatic steatosis. 2.9 x 2.1 cm avidly enhancing pos terior right hepatic lobe lesion, consistent with probable hepatic hemangioma. Normal hepatic vascula r enhancement. Gallbladder and Biliary Tree: Unremarkable Spleen: Unremarkable Pancreas: The pancreas is normal in appearance without focal lesions or abnormal enhancement. Adrenal Glands: Unremarkable Kidneys: No hydronephrosis. Right renal cysts measure up to 0.8 cm. Bladder: Unremarkable Bowel: The stomach is grossly normal in appearance. Small bowel and colon are normal in caliber and d istribution. The appendix is surgically absent. Ascites: Absent Lymphadenopathy: No mesenteric, retroperitoneal or periportal lymphadenopathy. Abdominal Wall and Mesentery: Unremarkable. Vasculature: The visualized abdominal aorta is normal in size and caliber. Abdominal and pelvic vess els demonstrate normal enhancement. Pelvic Organs: Unremarkable Musculoskeletal: No aggressive focal bony lesions, acute fractures or dislocation. IMPRESSION: 1. No acute abdominal or pelvic finding. 2. Hepatic steatosis and probable posterior right hepatic lobe hemangioma. Radiation optimization: All CT scans at this facility use at least one of these dose optimization shalini hniques: automated exposure control mA and/or kV adjustment per patient size (includes targeted exam s where dose is matched to clinical indication) or iterative reconstruction.
[2025-03-29] MEDS: IOHEXOL 300 MG/ML 100ML BOTTLE IJ ONE (02:32)
[2025-03-29 02:40] VITALS: BP 125/71; PULSE 82; RESP 18; TEMP 97.9; O2SAT 99
== END 2025-03-29 02:40 | disposition home or self-care (01) ==
LOC: ER 22:26
DX: K52.9 Noninfective gastroenteritis and colitis, unspecified (principal); E11.9 Type 2 diabetes mellitus without complications; E78.5 Hyperlipidemia, unspecified; Z79.84 Long term (current) use of oral hypoglycemic drugs; Z79.899 Other long term (current) drug therapy; Z90.49 Acquired absence of other specified parts of digestive tract; Z98.51 Tubal ligation status; Z98.890 Other specified postprocedural states; Z88.6 Allergy status to analgesic agent
CPT/HCPCS: 36415; 74177; 80048; 81001; 84484; 85025; 99285; Q9967

== ENCOUNTER 2025-05-24 17:44 | Inpatient (IN) | payer MEDICAID ==
[~2025-05-24] VITALS: Ht 165.1 cm; Wt 70.2 kg
--- NOTE | 2025-05-24 17:47 | ED.PDOC ---
GI ASSESSMENT HPI Comments HPI: Poor Historian. 49-year-old female brought in by ambulance from home for evaluation of left- sided abdominal pain for the last two days constant nonradiating with the associated black tarry stool and nausea and vomiting nonbilious nonbloody. past medical history: DM 2 ,HTN, HLD, past surgical history: appendix, , tubal ligation, allergies: ibuprofen medications: ozempic, tramadol, atorvastatin, losartan social history: denies tobacco use, denies ETOH use, denies drug use REVIEW OF SYSTEMS: CONSTITUTIONAL: Denies acute: fever, diaphoresis, chills, HEAD: Denies acute: headache, photophobia Eyes: Denies acute: Double vision, vision loss, eye pain, eye discharge. EARS: Denies acute: tinnitus, hearing loss, ear discharge, ear pain, THROAT: Denies acute: sore throat, swelling, difficulty swallowing , pain with swallowing, change in voice. NECK: Denies acute: neck pain, neck swelling, stiff neck. HEART: Denies acute : chest pain, palpitations, LUNGS: Denies acute: SOB, wheezing, cough, hemoptysis ABDOMEN: Denies acute: , hematemesis, hematochezia SKIN: Denies acute: rash, redness, lesions, itchiness. EXTREMITIES: Denies acute: calf pain, numbness, tingling, weakness, denies pain in extremity. Denies acute: Low back pain. Neuro: Denies acute: focal neurological deficit, motor or sensory focal neurological deficit, tremors, seizure like activity, confusion, dizziness, change in mental status, loss of bowel or bladder function, cauda equina like symptoms. : Denies acute: dysuria, hematuria, flank pain, increase in urinary frequency. PSYCH: Denies acute: hallucination, suicidal ideation, homicidal ideation. FEMALE: Denies acute: abnormal vaginal bleeding, foul odor, unusual discharge. PHYSICAL EXAM: General: ----[id number]----acute distress, awake and alert. Head: normocephalic, atraumatic. Neck: supple, trachea is midline, no swelling. Throat: Normal phonation. Eyes:, no erythema, no purulent discharge, no proptosis, no icterus. Heart: regular rate, regular rhythm, no significant murmur appreciated. Lungs: no apparent respiratory distress, Able to speak in full sentences. No wheezing, no rhonchi, no crackles. No stridors Clear to auscultation bilaterally. Abdomen: Left-sided upper and lower tender to palpation, non distended, soft, no guarding, no rebound, + bowel sounds. Neuro: Awake, Alert, oriented to name, self, situation, follows commands GCS=15. Speech is normal. Skin: no petechia, no purpura, no cyanosis, non-pale, not jaundice. Lower extremities: --no - Pitting edema no deformity, no focal swelling, no calf TTP. Makes eye contact. moves all four extremities. Face: no apparent facial droop. ED COURSE: DISCLAIMER: This medical document was created using an electronic medical record system with voice recognition software and computerized dictation system. Although this document has been carefully reviewed, there might still be some phonetic and typographical errors. Occasional wrong-word or "sound-alike" substitutions may have occurred due to the inherent limitations of voice recognition software. These areas are purely typographical due to imperfections of the software programs and do not reflect any compromise in the patient's medical care. Please read the chart carefully and recognize, using context, where these substitutions have occurred. Time Seen by MD: 17:45 Primary Care Provider: Dr. Barber Reviewed Notes: Medications, Allergies Allergies: Coded Allergies: Ibuprofen (Verified Allergy, Unknown, 08/24/18) Home Meds Active Scripts Metoclopramide Hcl (Reglan) 5 Mg Tab, 5 MG PO Q8HPRN PRN for 3 Days, #9 TAB Prov:DAVID HOUGH MD 05/27/25 Pantoprazole Sodium Sesquihydr (Protonix) 40 Mg Tab, 40 MG PO DAILY, #30 TAB Prov:DAVID HOUGH MD 05/27/25 Ondansetron Odt 4MG Tab (ZOFRAN PO) 4 Mg Tb, 4 MG PO Q6HP PRN, #15 TAB ODT TAB-DISSOLVE IN MOUTH, THEN SWALLOW Prov:DEE DEE ABREU 10/26/24 Acetaminophen (Acetaminophen) 500 Mg Tab, 500 MG PO Q4HP PRN, #20 TAB Prov:BRADYDEE DEE STEPHENS PAC 10/26/24 Reported Medications Hydroxychloroquine Sulfate (Hydroxychloroquine Sulfat) 200 Mg Tab, 1 TAB PO DAILY 02/21/24 Loratadine (CLARITIN TABLET) 10 Mg Tb, 1 TAB PO DAILYPRN PRN for allergies 02/21/24 Metformin Hydrochloride (Metformin Hcl) 1,000 Mg Tab, 1 TAB PO BID 02/21/24 Discontinued Scripts Levofloxacin Hemihydrate (LEVAQUIN 500 MG) 500 Mg Tab, 1 TAB PO DAILY, #7 TAB Prov:ALINA PARISI MD 02/23/24 Metronidazole (Flagyl) 500 Mg Tab, 1 TAB PO TID, #21 TAB Prov:ALINA PARISI MD 02/23/24 Ondansetron (Zofran) 4 Mg Tab, 1 TAB PO Q6HR, #20 TAB Prov:NIURKA OSBORNE MD 02/11/22 Information Source: Patient, Emergency Med Personnel Mode of Arrival: EMS Past Medical History PAST MEDICAL HISTORY: DM, High Lipids Surgical History: Appendectomy, BTL, BILINGUAL RECEPTIONIST History: No Pertinent BILINGUAL RECEPTIONIST History Family History Family History: Family hx of DM, Family hx of heart daán, Family hx of HTN Social History Smoker: Non-Smoker Alcohol: Denies ETOH Use Drugs: Denies Drug Use Lives In: Home Was a procedure done? Was a procedure done?: No GI differential Dx Differential Diagnosis: Gastroenteritis, Inflammatory BD, Dehydration, Bacterial, Parasitic, Viral, Other X-Ray, Labs, Meds, VS Vital Signs Date Time Temp Pulse Resp B/P (MAP) Pulse Ox O2 Delivery O2 Flow Rate FiO2 05/24/25 22:34 98.1 95 16 115/77 (90) 99 98.1 05/24/25 22:34 98.1 95 16 115/77 (90) 99 98.1 05/24/25 22:34 95 16 99 Room Air 05/24/25 21:14 97.8 90 15 108/65 (79) 100 97.8 05/24/25 18:21 98 18 98 Room Air* 0 21 05/24/25 18:16 97.4 91 30 124/68 (86) 98 97.4 05/24/25 18:15 99 16 100 Room Air 05/24/25 18:15 98.1 99 16 123/74 (90) 100 98.1 Lab Test 05/24/25 22:32 05/24/25 18:57 05/24/25 18:12 Range/Units POC Glucose 82 70-106 mg/dl Urine Color Yellow Yellow Urine Clarity Cloudy H Clear Urine pH 5.5 5.0-9.0 Urine Specific [place] 1.031 1.001-1.035 Urine Protein 1+ H Negative Urine Ketones 4+ H Negative Urine Blood Negative Negative /uL Urine Nitrite Negative Negative Urine Bilirubin Negative Negative Urine Urobilinogen Normal Negative mg/dL Urine Leukocyte Esterase 2+ Negative /uL Urine RBC 6 0 - 4 /hpf Urine Microscopic WBC 6 H 0-5 /HPF Urine Squamous Epithelial Cells Few <5 /hpf Urine Calcium Oxalate Crystals Few None Seen Urine Bacteria Few H None Seen /hpf Urine Mucus Many None Seen Urine Glucose Normal Normal mg/dL White Blood Count 5.4 4.4-10.8 10^3/uL Red Blood Count 4.39 4.0-5.20 10^6/uL Hemoglobin 12.7 12.2-16.2 g/dL Hematocrit 37.0 36.0-46.0 % Mean Corpuscular Volume 84.3 80.0-100.0 fL Mean Corpuscular Hemoglobin 29.0 28.0-32.0 pg Mean Corpuscular Hemoglobin Concent 34.4 32.0-36.0 g/dL Red Cell Distribution Width 14.0 11.8-14.3 % Platelet Count 262 140-450 10^3/uL Mean Platelet Volume 7.7 6.9-10.8 fL Neutrophils (%) (Auto) 82.9 H 37.0-80.0 % Lymphocytes (%) (Auto) 11.7 10.0-50.0 % Monocytes (%) (Auto) 4.9 0.0-12.0 % Eosinophils (%) (Auto) 0.3 0.0-7.0 % Basophils (%) (Auto) 0.2 0.0-2.0 % Neutrophils # (Auto) 4.5 1.6-8.6 10 ^3/uL Lymphocytes # (Auto) 0.6 0.4-5.4 10 ^3/uL Monocytes # (Auto) 0.3 0-1.3 10 ^3/uL Eosinophils # (Auto) 0 0-0.8 10 ^3/uL Basophils # (Auto) 0 0-0.2 10 ^3/uL Nucleated Red Blood Cells 0.0 % Sodium Level 144 136-145 mmol/L Potassium Level 4.0 3.5-5.1 mmol/L Chloride Level 107 98-107 mmol/L Carbon Dioxide Level 25 20-31 mmol/L Anion Gap 12 5-15 Blood Urea Nitrogen 17 9-23 mg/dL Creatinine 0.89 0.550-1.02 mg/dL Glomerular Filtration Rate Calc 78 >90 mL/min BUN/Creatinine Ratio 19.1 10.0-20.0 Serum Glucose 120 H 74-106 mg/dL Lactic Acid Level 1.7 0.4-2.0 mmol/L Calcium Level 9.9 8.7-10.4 mg/dL Total Bilirubin 0.6 0.2-1.0 mg/dL Aspartate Amino Transferase (AST) 19 <34 U/L Alanine Aminotransferase (ALT) 28 7-40 U/L Alkaline Phosphatase 72 46-116 U/L Total Protein 7.7 5.7-8.2 g/dL Albumin 5.0 H 3.2-4.8 g/dL Lipase 53 12-53 U/L Microbiology Date/Time Source Procedure Growth Status 05/24/25 18:57 Voided Urine Urine Culture - Final Complete [place] [address] Ph: [phone] DIAGNOSTIC IMAGING Diagnostic Imaging Report : [id number] Signed PATIENT: DEVI DE LA CRUZ ACCT: [id number] UNIT: [id number] : 1975 LOC: ER ROOM / BED: / AGE / SEX: 49 / F ADM STATUS: REG ER SERVICE [id number] ORDERING PHYSICIAN: MEAGAN DAN DO PROCEDURE(s): ABPL - CT AB PEL WO CON-NO ORAL OR IV REASON: abd pain, n/v/d black stoo ORDER NUMBER(s): [id number], ACCESSION NUMBER(s): [id number] Exam: CT CT AB PEL WO CON-NO ORAL OR IV History: abd pain, n/v/d black stool Comparison Study: CT CT AB PEL WO CON-NO ORAL OR IV on DOS: 10/26/24, CT CT AB PEL WO CON-NO ORAL OR IV on DOS: 02/21/24 Technique: Multidetector spiral CT of the abdomen was performed from lung bases to pubic symphysis. Imaging was performed without IV contrast. Axial, coronal and sagittal multiplanar reformats were obtained from the axial data set by the technologist. Radiation Dose : 1. Abdomen/Pelvis: CTDIvol 12 mGy, DLP 630 mGy*cm. Findings: Evaluation of solid organs is limited due to lack of intravenous contrast use. Lung Bases: Unremarkable Liver: Hepatic steatosis. Previously noted posterior right hepatic lobe lesion is better characterized on prior contrast-enhanced CT. Gallbladder and Biliary Tree: Unremarkable Spleen: Unremarkable Pancreas: Unremarkable Adrenal Glands: Unremarkable Kidneys: Unremarkable Bladder: Grossly unremarkable for degree of distention. Bowel: Unremarkable. Surgically absent appendix. Peritoneum and Retroperitoneum: Unremarkable Lymphadenopathy: No lymphadenopathy. Abdominal Wall: Unremarkable. Vasculature: The visualized abdominal aorta is normal in size and caliber. Evaluation of abdominal and pelvic vessels is limited due to lack of intravenous contrast. Pelvic Organs: Unremarkable Musculoskeletal: No acute osseous abnormality. IMPRESSION: No acute abdominal or pelvic findings. Hepatic steatosis. Radiation optimization: All CT scans at this facility use at least one of these dose optimization techniques: automated exposure control mA and/or kV adjustment per patient size (includes targeted exams where dose is matched to clinical indication) or iterative reconstruction. ATED BY: ANDREW GALE MD DICTATED DATE/TIME: 05/24/251835 SIGNED BY: ANDREW GLAE MD SIGNED DATE/TIME: 05/24/251835 CC: Time of 1ST Reevaluation: 20:20 (PATIENT DECLINED ZOFRAN BECAUSE SHE IS NOT NAUSEATED AND DOES NOT HAVE ANY VOMITING HERE IN THE ED. Patient requested food and juice to drink to help with having a bowel movement to sent for analysis. Patient tolerated p.o. intake well. Patient in no acute distress.) Reevaluation 1ST: N/A Time of 2ND Reevaluation: 21:13 (pt provided cup for stool sample but states she is not able to provide sample at this time) Patient Education/Counseling: Diagnosis, Treatment Family Education/Counseling: No Family Present Comments Patient unable to provide us with a stool sample. Patient presented with the above HPI.---diarrhea/melena---workup was initiated. patient was found with the above mentioned diagnosis. the following medications were ordered: please refer to order lists of meds and tests obtained by myself Dr. Dan. Patient ED course and VS have been stabilized. Patient has been reassessed in the ED and remained in a stable condition. Pertinent incidental findings were discussed with the patient and/or family. Patient/family voices understanding and is agreeable with plan. Patient has been observed in the ED adequate length of time to insure improvement/stability. Escalation of care considered: Consideration of escalation to observation or admission Patient was ADMITTED to the medicine team for further evaluation and treatment of their presentation. All the reports of any imaging studies that were ordered by myself were reviewed by myself. SEPSIS Sepsis Screen Physician Orders [facility] (05/24/25 ) Electrocardigram (05/24/25 17:47) Ova & Parasite Exam (05/24/25 17:47) Ct Ab Pel Wo Con-No Oral Or Iv (05/24/25 17:47) Code Status (05/24/25 21:49) Oxygen Per Hour (05/24/25 21:49) Vital Signs Date Time Temp Pulse Resp B/P (MAP) Pulse Ox O2 Delivery O2 Flow Rate FiO2 05/24/25 22:34 98.1 95 16 115/77 (90) 99 98.1 05/24/25 22:34 98.1 95 16 115/77 (90) 99 98.1 05/24/25 22:34 95 16 99 Room Air 05/24/25 21:14 97.8 90 15 108/65 (79) 100 97.8 05/24/25 18:21 98 18 98 Room Air* 0 21 05/24/25 18:16 97.4 91 30 124/68 (86) 98 97.4 05/24/25 18:15 99 16 100 Room Air 05/24/25 18:15 98.1 99 16 123/74 (90) 100 98.1 Laboratory Tests Test 05/24/25 18:12 Lactic Acid Level 1.7 mmol/L (0.4-2.0) White Blood Count 5.4 10^3/uL (4.4-10.8) Departure 1 Departure Time of Disposition: 20:19 Impression: Primary Impression: Urinary tract infection Additional Impressions: Abdominal pain Diarrhea Melena Disposition: ADMITTED INPATIENT Admit to: Tele Condition: Guarded Additional Instructions: Below is a copy of your radiological report for follow up: [facility] [id number] [place] [id number] Ph: [phone] DIAGNOSTIC IMAGING Diagnostic Imaging Report : [id number] Signed PATIENT: DEVI DE LA CRUZ ACCT: [id number] UNIT: [id number] : 1975 LOC: ER ROOM / BED: / AGE / SEX: 49 / F ADM STATUS: REG ER SERVICE [id number] ORDERING PHYSICIAN: MEAGAN DAN DO PROCEDURE(s): ABPL - CT AB PEL WO CON-NO ORAL OR IV REASON: abd pain, n/v/d black stoo ORDER NUMBER(s): [id number], ACCESSION NUMBER(s): [id number] Exam: CT CT AB PEL WO CON-NO ORAL OR IV History: abd pain, n/v/d black stool Comparison Study: CT CT AB PEL WO CON-NO ORAL OR IV on DOS: 10/26/24, CT CT AB PEL WO CON-NO ORAL OR IV on DOS: 02/21/24 Technique: Multidetector spiral CT of the abdomen was performed from lung bases to pubic symphysis. Imaging was performed without IV contrast. Axial, coronal and sagittal multiplanar reformats were obtained from the axial data set by the technologist. Radiation Dose : 1. Abdomen/Pelvis: CTDIvol 12 mGy, DLP 630 mGy*cm. Findings: Evaluation of solid organs is limited due to lack of intravenous contrast use. Lung Bases: Unremarkable Liver: Hepatic steatosis. Previously noted posterior right hepatic lobe lesion is better characterized on prior contrast-enhanced CT. Gallbladder and Biliary Tree: Unremarkable Spleen: Unremarkable Pancreas: Unremarkable Adrenal Glands: Unremarkable Kidneys: Unremarkable Bladder: Grossly unremarkable for degree of distention. Bowel: Unremarkable. Surgically absent appendix. Peritoneum and Retroperitoneum: Unremarkable Lymphadenopathy: No lymphadenopathy. Abdominal Wall: Unremarkable. Vasculature: The visualized abdominal aorta is normal in size and caliber. Evaluation of abdominal and pelvic vessels is limited due to lack of intravenous contrast. Pelvic Organs: Unremarkable Musculoskeletal: No acute osseous abnormality. IMPRESSION: No acute abdominal or pelvic findings. Hepatic steatosis. Radiation optimization: All CT scans at this facility use at least one of these dose optimization techniques: automated exposure control mA and/or kV adjustment per patient size (includes targeted exams where dose is matched to clinical indication) or iterative reconstruction. ATED BY: ANDREW GALE MD DICTATED DATE/TIME: 05/24/251835 SIGNED BY: ANDREW GALE MD SIGNED DATE/TIME: 05/24/251835 CC: e-Prescriptions Metoclopramide Hcl (Reglan) 5 Mg Tab 5 MG PO Q8HPRN PRN for 3 Days, #9 TAB Prov: DAVID HOUGH MD 05/27/25 Pantoprazole Sodium Sesquihydr (Protonix) 40 Mg Tab 40 MG PO DAILY, #30 TAB Prov: DAVID HOUGH MD 05/27/25 Discharged With: Self Critical Care Note Critical Care Time?: No I personally scribed for MEAGAN DAN DO ([facility]) on 05/24/25 at 18:55. Electronically submitted by Hilary Fry [facility] I personally scribed for MEAGAN DAN DO ([email or web address]) on 05/24/25 at 21:14. Electronically submitted by Hilary Fry ([facility] I personally scribed for MEAGAN DAN DO ([email or web address]) on 05/24/25 at 22:10. Electronically submitted by Hilary Fry ([facility] MEAGAN DAN DO May 24, 2025 17:47
[2025-05-24] MEDS: SODIUM CHLORIDE 0.9% 1,000 ML IV ONE (18:12)
[2025-05-24] MEDS: PANTOPRAZOLE 40 MG/10 ML VIAL INJ IV ONE (18:19)
[2025-05-24 18:21] VITALS: PULSE 98; RESP 18; O2SAT 98
[2025-05-24 18:34] LABS: Hematocrit 37.0 % (36.0-46.0); Hemoglobin 12.7 g/dL (12.2-16.2); Mean Corpuscular Hemoglobin 29.0 pg (28.0-32.0); Mean Corpuscular Volume 84.3 fL (80.0-100.0); Nucleated Red Blood Cells % 0.0 %
--- NOTE | 2025-05-24 18:38 | DVH ---
Exam: CT CT AB PEL WO CON-NO ORAL OR IV History: abd pain, n/v/d black stool Comparison Study: CT CT AB PEL WO CON-NO ORAL OR IV on DOS: 10/26/24, CT CT AB PEL WO CON-NO ORAL OR IV on DOS: 02/21/24 Technique: Multidetector spiral CT of the abdomen was performed from lung bases to pubic symphysis. I maging was performed without IV contrast. Axial, coronal and sagittal multiplanar reformats were obta ined from the axial data set by the technologist. Radiation Dose : 1. Abdomen/Pelvis: CTDIvol 12 mGy, DLP 630 mGy*cm. Findings: Evaluation of solid organs is limited due to lack of intravenous contrast use. Lung Bases: Unremarkable Liver: Hepatic steatosis. Previously noted posterior right hepatic lobe lesion is better characterize d on prior contrast-enhanced CT. Gallbladder and Biliary Tree: Unremarkable Spleen: Unremarkable Pancreas: Unremarkable Adrenal Glands: Unremarkable Kidneys: Unremarkable Bladder: Grossly unremarkable for degree of distention. Bowel: Unremarkable. Surgically absent appendix. Peritoneum and Retroperitoneum: Unremarkable Lymphadenopathy: No lymphadenopathy. Abdominal Wall: Unremarkable. Vasculature: The visualized abdominal aorta is normal in size and caliber. Evaluation of abdominal a nd pelvic vessels is limited due to lack of intravenous contrast. Pelvic Organs: Unremarkable Musculoskeletal: No acute osseous abnormality. IMPRESSION: No acute abdominal or pelvic findings. Hepatic steatosis. Radiation optimization: All CT scans at this facility use at least one of these dose optimization shalini hniques: automated exposure control mA and/or kV adjustment per patient size (includes targeted exam s where dose is matched to clinical indication) or iterative reconstruction.
[2025-05-24 18:47] LABS: Alanine Aminotransferase 28 U/L (7-40); Alkaline Phosphatase 72 U/L (46-116); Anion Gap 12 (5-15); BUN/Creatinine Ratio 19.1 (10.0-20.0); Bilirubin, Total 0.6 mg/dL (0.2-1.0); Blood Urea Nitrogen 17 mg/dL (9-23); Calcium 9.9 mg/dL (8.7-10.4); Carbon Dioxide 25 mmol/L (20-31); Potassium 4.0 mmol/L (3.5-5.1); Sodium 144 mmol/L (136-145); Total Protein 7.7 g/dL (5.7-8.2)
[2025-05-24 18:49] LABS: Albumin 5.0 g/dL (3.2-4.8); Chloride 107 mmol/L (98-107); Glucose 120 mg/dL (74-106); Lipase 53 U/L (12-53)
[2025-05-24 19:17] LABS: Urine Protein, UAD 1+ (Negative)
[2025-05-24] MEDS: ONDANSETRON HCL 4 MG/2 ML VIAL IV ONE (19:47)
[2025-05-24] MEDS ORDERED: DOCUSATE SOD 100 MG CAP PO PRN (22:00)
[2025-05-24] MEDS ORDERED: DEXTROSE (50%) 50ML SYRG IV PRN (22:00)
[2025-05-24] MEDS ORDERED: ACETAMINOPHEN 325 MG TAB PO PRN (22:00)
[2025-05-24] MEDS: ACCU-CHEK COMFORT CURVE STRIP VI SCH (22:33)
[2025-05-24] MEDS: InsuLIN REG 1unit/0.01ml Soln (100units/ml) SC SCH (22:33)
[2025-05-24] MEDS: SODIUM CHLOR 0.9% PF (SALINE LOCK) 10ML VIAL/SYR IV SCH (22:37)
[2025-05-24] MEDS: cefTRIAXone 1GM/50ML D5W 50 ML IV ONE (22:40)
--- NOTE | 2025-05-24 23:18 | DVHHP2 ---
History of Present Illness Reason for Visit: Abdominal pain History of Present Illness The patient is a 49-year-old female with past medical history of diabetes mellitus, hypertension, and hyperlipidemia who presented to [facility] ED with complaint of abdominal pain. Patient reports she has been experiencing abdominal pain for the past 2 days, nonradiating, associated with black tarry stools, nausea, vomiting, getting worse today that prompted this visit. Patient was seen and evaluated in the ED, laboratory data shows WBC 5.4, platelets 262, sodium 144, potassium 4.0, BUN 17, creatinine 0.89, glucose 120, calcium 9.9, albumin 5.0, blood pressure 108/65, heart rate 90, temperature 97.8 F, O2 saturation 98% on room air. Abdomen/pelvis CT shows no acute abdominal or pelvic findings. Urinalysis positive for urinary tract infection. Please see medication orders section in the computer. On my assessment, patient denied chest pain, no headache, no dizziness, no shortness a breath, no abdominal pain, no nausea, or vomiting at this moment, no fever, no chills. Patient was admitted for further evaluation and medical management. Past Medical History DM, High Lipids Past Surgical History Appendectomy, BTL, Family History Reviewed, noncontributory to the management of this case. Past Social History The patient lives at home, denies smoking, alcohol or illicit drugs abuse. Review of Systems Constitutional: No: Fever, Chills, Sweats, Weakness, Malaise, Other Eyes: No: Pain, Vision change, Conjunctivae inflammation, Eyelid inflammation, Other, Redness ENT: No: Ear pain, Ear discharge, Nose pain, Nose discharge, Nose congestion, Mouth pain, Mouth swelling, Throat pain, Throat swelling, Other Respiratory: No: Cough, Dry, Shortness of breath, SOB with excertion, Wheezing, Hemoptysis, Pleuritic Pain, Sputum, Wheezing, Other Cardiovascular: No: Chest Pain, Palpitations, Orthopnea, Paroxysmal Noc. Dyspnea, Edema, Lt Headedness, Other Gastrointestinal: Nausea, Vomiting, Abdominal Pain, Melena; No: Diarrhea, Constipation, Hematochezia, Other Genitourinary: No Dysuria, No Frequency, No Incontinence, No Hematuria, No Retention, No Other Musculoskeletal: No: other, neck pain, shoulder pain, arm pain, back pain, hand pain, leg pain, foot pain Skin: No: Rash, Lesions, Jaundice, Bruising, Other Neurological: No: Weakness, Numbness, Incoordination, Change in speech, Confusion, Seizures, Other Allergies: Coded Allergies: Ibuprofen (Verified Allergy, Unknown, 08/24/18) Medications Current Medications Medications Dose Ordered Sig/Annmarie Route Start Time Stop Time Status Last Admin Dose Admin Ceftriaxone Sodium 50 ml @ 100 mls/hr DAILY@09 IV 05/25/25 09:00 Pantoprazole Sodium 40 mg DAILY IV 05/25/25 10:00 Diagnostic Test (Pha) 1 strip ACHS 05/24/25 22:00 05/24/25 22:33 1 STRIP Insulin Human Regular ACHS SC 05/24/25 22:00 Dextrose 50 ml UD PRN IV 05/24/25 22:00 Sodium Chloride 10 ml Q8HR IV 05/24/25 22:00 05/24/25 22:37 10 ML Acetaminophen/ Hydrocodone Bitart 1 tab Q4HP PRN PO 05/24/25 22:00 Ondansetron HCl 4 mg Q4HP PRN IV 05/24/25 22:00 Docusate Sodium 100 mg BIDPRN PRN PO 05/24/25 22:00 Acetaminophen 650 mg Q6HP PRN PO 05/24/25 22:00 Exam Vital Signs Vital Signs Date Time Temp Pulse Resp B/P (MAP) Pulse Ox O2 Delivery O2 Flow Rate FiO2 05/24/25 22:34 98.1 95 16 115/77 (90) 99 98.1 05/24/25 22:34 Room Air 05/24/25 18:21 0 21 General Appearance: Alert, Oriented X3, Cooperative, No acute distress HEENT: Atraumatic, PERRLA, EOMI, Mucous membr. moist/pink Respiratory: Clear to auscultation, Normal air movement Cardiovascular: Regular rate, Normal S1, Normal S2, No murmurs Abdominal: Normal bowel sounds, Soft, No hepatospenomegaly, No masses, Other (Reports tenderness) Extremities: No clubbing, No cyanosis, No edema, Normal pulses, No tenderness/swelling Skin: No rashes, No breakdown, No significant lesion Neuro: Normal gait, Normal speech, Strength at 5/5 X4 ext, Normal tone, Sensation intact, Cranial nerves 3-12 NL, Reflexes 2+ Psych/Mental Status: Mental status NL, Mood NL Labs/Xrays Labs Test 05/24/25 22:32 05/24/25 18:57 05/24/25 18:12 Range/Units POC Glucose 82 70-106 mg/dl Urine Color Yellow Yellow Urine Clarity Cloudy H Clear Urine pH 5.5 5.0-9.0 Urine Specific [place] 1.031 1.001-1.035 Urine Protein 1+ H Negative Urine Ketones 4+ H Negative Urine Blood Negative Negative /uL Urine Nitrite Negative Negative Urine Bilirubin Negative Negative Urine Urobilinogen Normal Negative mg/dL Urine Leukocyte Esterase 2+ Negative /uL Urine RBC 6 0 - 4 /hpf Urine Microscopic WBC 6 H 0-5 /HPF Urine Squamous Epithelial Cells Few <5 /hpf Urine Calcium Oxalate Crystals Few None Seen Urine Bacteria Few H None Seen /hpf Urine Mucus Many None Seen Urine Glucose Normal Normal mg/dL White Blood Count 5.4 4.4-10.8 10^3/uL Red Blood Count 4.39 4.0-5.20 10^6/uL Hemoglobin 12.7 12.2-16.2 g/dL Hematocrit 37.0 36.0-46.0 % Mean Corpuscular Volume 84.3 80.0-100.0 fL Mean Corpuscular Hemoglobin 29.0 28.0-32.0 pg Mean Corpuscular Hemoglobin Concent 34.4 32.0-36.0 g/dL Red Cell Distribution Width 14.0 11.8-14.3 % Platelet Count 262 140-450 10^3/uL Mean Platelet Volume 7.7 6.9-10.8 fL Neutrophils (%) (Auto) 82.9 H 37.0-80.0 % Lymphocytes (%) (Auto) 11.7 10.0-50.0 % Monocytes (%) (Auto) 4.9 0.0-12.0 % Eosinophils (%) (Auto) 0.3 0.0-7.0 % Basophils (%) (Auto) 0.2 0.0-2.0 % Neutrophils # (Auto) 4.5 1.6-8.6 10 ^3/uL Lymphocytes # (Auto) 0.6 0.4-5.4 10 ^3/uL Monocytes # (Auto) 0.3 0-1.3 10 ^3/uL Eosinophils # (Auto) 0 0-0.8 10 ^3/uL Basophils # (Auto) 0 0-0.2 10 ^3/uL Nucleated Red Blood Cells 0.0 % Sodium Level 144 136-145 mmol/L Potassium Level 4.0 3.5-5.1 mmol/L Chloride Level 107 98-107 mmol/L Carbon Dioxide Level 25 20-31 mmol/L Anion Gap 12 5-15 Blood Urea Nitrogen 17 9-23 mg/dL Creatinine 0.89 0.550-1.02 mg/dL Glomerular Filtration Rate Calc 78 >90 mL/min BUN/Creatinine Ratio 19.1 10.0-20.0 Serum Glucose 120 H 74-106 mg/dL Lactic Acid Level 1.7 0.4-2.0 mmol/L Calcium Level 9.9 8.7-10.4 mg/dL Total Bilirubin 0.6 0.2-1.0 mg/dL Aspartate Amino Transferase (AST) 19 <34 U/L Alanine Aminotransferase (ALT) 28 7-40 U/L Alkaline Phosphatase 72 46-116 U/L Total Protein 7.7 5.7-8.2 g/dL Albumin 5.0 H 3.2-4.8 g/dL Lipase 53 12-53 U/L PATIENT: DEVI DE LA CRUZ ACCT: [id number] UNIT: [id number] : 1975 LOC: ER ROOM / BED: / AGE / SEX: 49 / F ADM STATUS: REG ER SERVICE [id number] ORDERING PHYSICIAN: MEAGAN DAN DO PROCEDURE(s): ABPL - CT AB PEL WO CON-NO ORAL OR IV REASON: abd pain, n/v/d black stoo ORDER NUMBER(s): [id number], ACCESSION NUMBER(s): [id number] Exam: CT CT AB PEL WO CON-NO ORAL OR IV History: abd pain, n/v/d black stool Comparison Study: CT CT AB PEL WO CON-NO ORAL OR IV on DOS: 10/26/24, CT CT AB PEL WO CON-NO ORAL OR IV on DOS: 02/21/24 Technique: Multidetector spiral CT of the abdomen was performed from lung bases to pubic symphysis. Imaging was performed without IV contrast. Axial, coronal and sagittal multiplanar reformats were obtained from the axial data set by the technologist. Radiation Dose: 1. Abdomen/Pelvis: CTDIvol 12 mGy, DLP 630 mGy*cm. Findings: Evaluation of solid organs is limited due to lack of intravenous contrast use. Lung Bases: Unremarkable Liver: Hepatic steatosis. Previously noted posterior right hepatic lobe lesion is better characterized on prior contrast-enhanced CT. Gallbladder and Biliary Tree: Unremarkable Spleen: Unremarkable Pancreas: Unremarkable Adrenal Glands: Unremarkable Kidneys: Unremarkable Bladder: Grossly unremarkable for degree of distention. Bowel: Unremarkable. Surgically absent appendix. Peritoneum and Retroperitoneum: Unremarkable Lymphadenopathy: No lymphadenopathy. Abdominal Wall: Unremarkable. Vasculature: The visualized abdominal aorta is normal in size and caliber. Evaluation of abdominal and pelvic vessels is limited due to lack of intravenous contrast. Pelvic Organs: Unremarkable Musculoskeletal: No acute osseous abnormality. IMPRESSION: No acute abdominal or pelvic findings. Hepatic steatosis. Assessment/Plan Assessment/Plan Abdominal pain Diarrhea Melena Urinary tract infection Plan 1. Admit to med surge unit 2. Breathing treatment 3. Pain control management 4. IV antibiotic management 5. Management of fluids and electrolytes 6. Consultation for hospitalist 7. Diagnostic test abdomen/pelvis CT 8. DVT prophylaxis on SCDs 9. Repeat labs CBC, CMP in a.m. 10. Home medication reviewed and reconciled 11. Continue with current medical management 12. Treatment plan discussed with patient and RN. Patient verbalized understanding. Plan discussed with: Patient, Other (RN) My Orders Orders - INDERJIT SHEPHERD DNP Procedure Category Date Status Time Urine Bacterial JERRI 05/24/25 In Process Culture 21:49 Consistent DIET 05/25/25 Transmitted Carb(Ccho)Diabetes Breakfast Ceftriaxone 1gm/50ml PHA 05/25/25 In Process D5w (Rocephin) 09:00 Pantoprazole PHA 05/25/25 In Process (Protonix) 10:00 Glucose Blood PHA 05/24/25 In Process (Accu-Chek Comfort 22:00 Insulin R (Human) PHA 05/24/25 In Process (Insulin R) 22:00 Dextrose 50% Syringe PHA 05/24/25 In Process 22:00 Allergies DEBORAH 05/24/25 In Process 21:49 Code Status CODE 05/24/25 Transmitted 21:49 Sodium Chloride Lock PHA 05/24/25 In Process (Saline Lock Ns) 22:00 Oxygen Per Hour RT 05/24/25 Transmitted 21:49 Hydrocodone-Acet PHA 05/24/25 In Process 5/325mg Tab ([place] 22:00 Ondansetron Hcl PHA 05/24/25 In Process (Zofran) 22:00 Docusate Sodium PHA 05/24/25 In Process Capsule (Colace 22:00 Complete Blood Count LAB 05/25/25 Verified 04:00 Comprehensive LAB 05/25/25 Verified Metabolic Panel 04:00 Condition: Serious DEBORAH 05/24/25 In Process 21:49 Acetaminophen Tablet PHA 05/24/25 In Process (Tylenol Tablet) 22:00 Bedrest With Bathroom DEBORAH 05/24/25 In Process Privileg 21:49 Sequential DEBORAH 05/24/25 In Process Compression Device Admit ADMIT 05/24/25 Verified 23:16 Nitroglycerin [facility] 05/24/25 Verified Sublingual (Ntrostat 23:30 Morphine Sulfate [facility] 05/24/25 Verified Injection 23:30 Notify Md Of Changes [facility] 05/24/25 Verified From Base 23:16 Emergency Dysrhythmia [facility] 05/24/25 Verified Protocol 23:16 Oxygen By Nasal RT 05/24/25 Verified Cannula 23:16 Problem List: (1) Abdominal pain (2) Diarrhea (3) Melena (4) Urinary tract infection Date of Service: May 24, 2025 Billing Provider: INDERJIT SHEPHERD DNP Common Visit Codes: [id number] INP/OBS CARE (HIGH) INDERJIT SHEPHERD DNP May 24, 2025 23:18
[2025-05-24] MEDS ORDERED: MORPHINE SULFATE INJ 2 MG/ml SYRG IV PRN (23:30)
[2025-05-24] MEDS ORDERED: NITROGLYCERIN 0.4 MG SL TAB SL PRN (23:30)
[2025-05-25 04:00] VITALS: PULSE 96; RESP 15; O2SAT 97
[2025-05-25 05:26] LABS: Hematocrit 31.3 % (36.0-46.0); Hemoglobin 10.9 g/dL (12.2-16.2); Mean Corpuscular Hemoglobin 29.2 pg (28.0-32.0); Mean Corpuscular Volume 83.5 fL (80.0-100.0); Nucleated Red Blood Cells % 0.1 %
[2025-05-25 06:00] VITALS: BP 123/76; PULSE 90; RESP 12; TEMP 98.2; O2SAT 97
[2025-05-25 06:05] LABS: Alanine Aminotransferase 22 U/L (7-40); Albumin 4.3 g/dL (3.2-4.8); Alkaline Phosphatase 58 U/L (46-116); Anion Gap 10 (5-15); BUN/Creatinine Ratio 23.9 (10.0-20.0); Bilirubin, Total 0.5 mg/dL (0.2-1.0); Blood Urea Nitrogen 17 mg/dL (9-23); Calcium 9.8 mg/dL (8.7-10.4); Carbon Dioxide 24 mmol/L (20-31); Glucose 87 mg/dL (74-106); Potassium 3.5 mmol/L (3.5-5.1); Sodium 143 mmol/L (136-145); Total Protein 6.4 g/dL (5.7-8.2)
[2025-05-25 06:06] LABS: Chloride 109 mmol/L (98-107)
[2025-05-25] MEDS: cefTRIAXone 1GM/50ML D5W 50 ML IV SCH (09:22)
[2025-05-25] MEDS: PANTOPRAZOLE 40 MG/10 ML VIAL INJ IV SCH (10:27)
--- NOTE | 2025-05-25 15:10 | DVHPN2 ---
Subjective 49-year-old female with a known history of diabetes mellitus type 2, hypertension, dyslipidemia is here for abdominal pain and black tarry stools. Changes from previous H/P or p: No Changes Eyes: No Pain, No Vision change, No Conjunctivae inflammation, No Eyelid inflammation, No Other, No Redness ENT: No Ear pain, No Ear discharge, No Nose pain, No Nose discharge, No Nose congestion, No Mouth pain, No Mouth swelling, No Throat pain, No Throat swelling, No Other Cardiovascular: No Chest Pain, No Palpitations, No Orthopnea, No Paroxysmal Noc. Dyspnea, No Edema, No Lt Headedness, No Other Respiratory: No Cough, No Dry, No Shortness of breath, No SOB with excertion, No Wheezing, No Hemoptysis, No Pleuritic Pain, No Sputum, No Other Gastrointestinal: Nausea, Vomiting, Abdominal Pain; No Diarrhea, No Constipation; Melena; No Hematochezia, No Other Genitourinary: No Dysuria, No Frequency, No Incontinence, No Hematuria, No Retention, No Other Musculoskeletal: No other, No neck pain, No shoulder pain, No arm pain, No back pain, No hand pain, No leg pain, No foot pain Skin: No Rash, No Lesions, No Jaundice, No Bruising, No Other Objective Vitals Vital Signs Date Time Temp Pulse Resp B/P (MAP) Pulse Ox O2 Delivery O2 Flow Rate FiO2 05/25/25 12:00 94 17 127/75 (92) 100 05/25/25 08:00 98.3 98.3 05/25/25 08:00 Room Air* 0 21 Intake/Output Intake and Output 05/25/25 07:00 Intake Total 1050 ml Balance 1050 ml Intake IV Total 1050 ml Exam HEENT pupils are reactive Neck is supple CV is S1-S2 regular rate and rhythm Respiratory are clear GI positive bowel sound Extremity no edema 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 Medications Current Medications Medications Dose Ordered Sig/Annmarie Route Start Time Stop Time Status Last Admin Dose Admin Ceftriaxone Sodium 50 ml @ 100 mls/hr DAILY@09 IV 05/25/25 09:00 05/25/25 09:22 100 MLS/HR Pantoprazole Sodium 40 mg DAILY IV 05/25/25 10:00 05/25/25 10:27 40 MG Diagnostic Test (Pha) 1 strip ACHS 05/24/25 22:00 05/25/25 11:30 1 STRIP Insulin Human Regular ACHS SC 05/24/25 22:00 Dextrose 50 ml UD PRN IV 05/24/25 22:00 Sodium Chloride 10 ml Q8HR IV 05/24/25 22:00 05/25/25 14:05 10 ML Acetaminophen/ Hydrocodone Bitart 1 tab Q4HP PRN PO 05/24/25 22:00 Ondansetron HCl 4 mg Q4HP PRN IV 05/24/25 22:00 Docusate Sodium 100 mg BIDPRN PRN PO 05/24/25 22:00 Acetaminophen 650 mg Q6HP PRN PO 05/24/25 22:00 Nitroglycerin 0.4 mg Q5MINP PRN SL 05/24/25 23:30 Morphine Sulfate 2 mg Q30M PRN IV 05/24/25 23:30 Laboratory Results Laboratory Tests 05/25/25 04:47 Chemistry Test 05/24/25 18:12 05/25/25 04:47 Albumin 5.0 g/dL (3.2-4.8) H 4.3 g/dL (3.2-4.8) Calcium Level 9.9 mg/dL (8.7-10.4) 9.8 mg/dL (8.7-10.4) Total Protein 7.7 g/dL (5.7-8.2) 6.4 g/dL (5.7-8.2) Lipid panel Test 05/24/25 18:12 Lipase 53 U/L (12-53) LFT Test 05/24/25 18:12 05/25/25 04:47 Alanine Aminotransferase (ALT) 28 U/L (7-40) 22 U/L (7-40) Alkaline Phosphatase 72 U/L (46-116) 58 U/L (46-116) Aspartate Amino Transferase (AST) 19 U/L (<34) 13 U/L (<34) Total Bilirubin 0.6 mg/dL (0.2-1.0) 0.5 mg/dL (0.2-1.0) Urinalysis Test 05/24/25 18:57 Urine Color Yellow (Yellow) Urine Clarity Cloudy (Clear) H Urine pH 5.5 (5.0-9.0) Urine Specific [place] 1.031 (1.001-1.035) Urine Protein 1+ (Negative) H Urine Ketones 4+ (Negative) H Urine Blood Negative /uL (Negative) Urine Nitrite Negative (Negative) Urine Bilirubin Negative (Negative) Urine Urobilinogen Normal mg/dL (Negative) Urine Leukocyte Esterase 2+ /uL (Negative) Urine RBC 6 /hpf (0 - 4) Urine Microscopic WBC 6 /HPF (0-5) H Urine Squamous Epithelial Cells Few /hpf (<5) Urine Calcium Oxalate Crystals Few (None Seen) Urine Bacteria Few /hpf (None Seen) H Urine Mucus Many (None Seen) Urine Glucose Normal mg/dL (Normal) Microbiology Microbiology Date/Time Source Procedure Growth Status 05/24/25 18:57 Voided Urine Urine Culture - Preliminary Resulted Assessment/Plan Assessment/Plan 49-year-old female with a known history of diabetes mellitus type 2, hypertension, dyslipidemia is here for abdominal pain and black tarry stools. 1. Melena ruled out upper GI bleed 2. Abdominal pain with the nausea 3. Diabetes mellitus type 2 4. Hypertension 5. Dyslipidemia. -monitor H&H, GI consultation, continue Protonix Plan discussed with: Patient My Orders Orders - DAVID HOUGH MD Procedure Category Date Status Time * Gi Dvh Gl Accountant CONS 05/25/25 Transmitted 12:04 Date of Service: May 25, 2025 Billing Provider: DAVID HOUGH MD Common Visit Codes: [id number] INP/OBS CARE(MOD) DAVID HOUGH MD May 25, 2025 15:10
[2025-05-25 16:40] VITALS: BP 107/70; PULSE 89; RESP 18; TEMP 98.7; O2SAT 97
[2025-05-25 17:31] VITALS: BP 107/70; PULSE 89; RESP 18; TEMP 98.7; O2SAT 97
[2025-05-25 20:00] VITALS: PULSE 92; RESP 18
[2025-05-25] MEDS: HYDROcodone-ACET 5/325MG TAB PO PRN (20:56)
[2025-05-25 21:00] VITALS: BP 134/79; PULSE 92; RESP 18; TEMP 98.1; O2SAT 97
--- NOTE | 2025-05-25 23:00 | DVHINCON2 ---
Date of service: May 25, [address] yost Reason for Consultation Melena and epigastric pain History of Present Illness The patient is a 49-year-old female with past medical history of diabetes mellitus, hypertension, and hyperlipidemia who presented to [facility] ED with complaint of abdominal pain for the past 2 days, nonradiating, associated with black tarry stools, nausea, vomiting, getting worse today that prompted this visit. GI was consulted for possible EGD. Patient is feeling better today Her stool for occult blood and WBC was negative. Patient also was diagnosed with a UTI and is on IV antibiotics. She has had a prior colonoscopy a few months ago at [facility] Past Medical History Past Medical History DM, High Lipids Past Surgical History Past Surgical History Appendectomy, BTL, Family History: Diabetes mellitus G8 MOTHER G8 FATHER, Allergies: Coded Allergies: Ibuprofen (Verified Allergy, Unknown, 08/24/18) Home Meds Active Scripts Ondansetron Odt 4MG Tab (ZOFRAN PO) 4 Mg Tb, 4 MG PO Q6HP PRN, #15 TAB ODT TAB-DISSOLVE IN MOUTH, THEN SWALLOW Prov:DEE DEE ABREU PAC 10/26/24 Acetaminophen (Acetaminophen) 500 Mg Tab, 500 MG PO Q4HP PRN, #20 TAB Prov:DEE DEE ABREU PAC 10/26/24 Levofloxacin Hemihydrate (LEVAQUIN 500 MG) 500 Mg Tab, 1 TAB PO DAILY, #7 TAB Prov:ALINA PARISI MD 02/23/24 Metronidazole (Flagyl) 500 Mg Tab, 1 TAB PO TID, #21 TAB Prov:ALINA PARISI MD 02/23/24 Ondansetron (Zofran) 4 Mg Tab, 1 TAB PO Q6HR, #20 TAB Prov:NIURKA OSBORNE MD 02/11/22 Pantoprazole Sodium Sesquihydr (Protonix) 40 Mg Tab, 40 MG PO DAILY, #30 TAB Prov:NIURKA OSBORNE MD 02/11/22 Reported Medications Hydroxychloroquine Sulfate (Hydroxychloroquine Sulfat) 200 Mg Tab, 1 TAB PO DAILY 02/21/24 Loratadine (CLARITIN TABLET) 10 Mg Tb, 1 TAB PO DAILYPRN PRN for allergies 02/21/24 Metformin Hydrochloride (Metformin Hcl) 1,000 Mg Tab, 1 TAB PO BID 02/21/24 Current Medications Current Medications Medications (Trade) Dose Ordered Sig/Annmarie Route PRN Reason Start Time Stop Time Status Last Admin Ceftriaxone Sodium 50 ml @ 100 mls/hr DAILY@09 IV 05/25/25 09:00 05/25/25 09:22 Pantoprazole Sodium (Protonix) 40 mg DAILY IV 05/25/25 10:00 05/25/25 10:27 Nitroglycerin (Ntrostat Sublingual) 0.4 mg Q5MINP PRN SL FOR CHEST PAIN 05/24/25 23:30 Morphine Sulfate 2 mg Q30M PRN IV FOR CHEST PAIN 05/24/25 23:30 Vital Signs Vital Signs Date Time Temp Pulse Resp B/P (MAP) Pulse Ox O2 Delivery O2 Flow Rate FiO2 05/25/25 21:00 98.1 92 18 134/79 (97) 97 98.1 05/25/25 17:31 Room Air* 0 21 Physical Exam HEENT pupils are reactive Neck is supple CV is S1-S2 regular rate and rhythm Respiratory are clear GI positive bowel sound Extremity no edema 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 Labs/Diagnostic Data Labs Test 05/25/25 15:11 05/25/25 12:02 05/25/25 04:47 05/24/25 18:57 Range/Units Stool Occult Blood Negative Negative Stool Occult Blood Sample #3 Negative Stool for White Cells None seen POC Glucose 105 70-106 mg/dl White Blood Count 3.9 #L 4.4-10.8 10^3/uL Red Blood Count 3.75 L 4.0-5.20 10^6/uL Hemoglobin 10.9 L 12.2-16.2 g/dL Hematocrit 31.3 #L 36.0-46.0 % Mean Corpuscular Volume 83.5 80.0-100.0 fL Mean Corpuscular Hemoglobin 29.2 28.0-32.0 pg Mean Corpuscular Hemoglobin Concent 34.9 32.0-36.0 g/dL Red Cell Distribution Width 14.0 11.8-14.3 % Platelet Count 210 140-450 10^3/uL Mean Platelet Volume 7.8 6.9-10.8 fL Neutrophils (%) (Auto) 60.1 37.0-80.0 % Lymphocytes (%) (Auto) 28.4 10.0-50.0 % Monocytes (%) (Auto) 9.3 0.0-12.0 % Eosinophils (%) (Auto) 1.8 0.0-7.0 % Basophils (%) (Auto) 0.4 0.0-2.0 % Neutrophils # (Auto) 2.4 1.6-8.6 10 ^3/uL Lymphocytes # (Auto) 1.1 0.4-5.4 10 ^3/uL Monocytes # (Auto) 0.4 0-1.3 10 ^3/uL Eosinophils # (Auto) 0.1 0-0.8 10 ^3/uL Basophils # (Auto) 0 0-0.2 10 ^3/uL Nucleated Red Blood Cells 0.1 % Sodium Level 143 136-145 mmol/L Potassium Level 3.5 3.5-5.1 mmol/L Chloride Level 109 H 98-107 mmol/L Carbon Dioxide Level 24 20-31 mmol/L Anion Gap 10 5-15 Blood Urea Nitrogen 17 9-23 mg/dL Creatinine 0.71 0.550-1.02 mg/dL Glomerular Filtration Rate Calc 103 >90 mL/min BUN/Creatinine Ratio 23.9 H 10.0-20.0 Serum Glucose 87 74-106 mg/dL Calcium Level 9.8 8.7-10.4 mg/dL Total Bilirubin 0.5 0.2-1.0 mg/dL Aspartate Amino Transferase (AST) 13 <34 U/L Alanine Aminotransferase (ALT) 22 7-40 U/L Alkaline Phosphatase 58 46-116 U/L Total Protein 6.4 5.7-8.2 g/dL Albumin 4.3 3.2-4.8 g/dL Urine Color Yellow Yellow Urine Clarity Cloudy H Clear Urine pH 5.5 5.0-9.0 Urine Specific [place] 1.031 1.001-1.035 Urine Protein 1+ H Negative Urine Ketones 4+ H Negative Urine Blood Negative Negative /uL Urine Nitrite Negative Negative Urine Bilirubin Negative Negative Urine Urobilinogen Normal Negative mg/dL Urine Leukocyte Esterase 2+ Negative /uL Urine RBC 6 0 - 4 /hpf Urine Microscopic WBC 6 H 0-5 /HPF Urine Squamous Epithelial Cells Few <5 /hpf Urine Calcium Oxalate Crystals Few None Seen Urine Bacteria Few H None Seen /hpf Urine Mucus Many None Seen Urine Glucose Normal Normal mg/dL Test 05/24/25 18:12 Range/Units Lactic Acid Level 1.7 0.4-2.0 mmol/L Lipase 53 12-53 U/L Microbiology Date/Time Source Procedure Growth Status 05/24/25 18:57 Voided Urine Urine Culture - Preliminary Resulted CT SCAN ABD PELVIS IMPRESSION: No acute abdominal or pelvic findings. Hepatic steatosis. Problems(with codes): (1) Abdominal pain (2) Urinary tract infection (3) Melena Plan/Recommendation Plan Protonix 40 mg p.o. twice a day Clear liquid diet NPO after midnight Possible EGD on 05/26/2025 Continue IV antibiotics and await urine culture Plan discussed with: Patient, Other (Nurse) DRAKE OSULLIVAN MD May 25, 2025 23:00
[2025-05-26] VITALS (10 sets, daily range): BP systolic 109–128; BP diastolic 71–81; PULSE 82–95; RESP 12–18; TEMP 96.3–98.7; O2SAT 96–99
[2025-05-26] MEDS: ONDANSETRON HCL 4 MG/2 ML VIAL IV PRN (00:48)
--- NOTE | 2025-05-26 09:36 | ECG ---
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
[2025-05-26 12:45] LABS: Hematocrit 36.1 % (36.0-46.0); Hemoglobin 12.4 g/dL (12.2-16.2); Mean Corpuscular Hemoglobin 28.9 pg (28.0-32.0); Mean Corpuscular Volume 84.4 fL (80.0-100.0); Nucleated Red Blood Cells % 0.1 %
--- NOTE | 2025-05-26 14:20 | DVHPN2 ---
Subjective 49-year-old female with a known history of diabetes mellitus type 2, hypertension, dyslipidemia is here for abdominal pain and black tarry stools. Changes from previous H/P or p: No Changes Eyes: No Pain, No Vision change, No Conjunctivae inflammation, No Eyelid inflammation, No Other, No Redness ENT: No Ear pain, No Ear discharge, No Nose pain, No Nose discharge, No Nose congestion, No Mouth pain, No Mouth swelling, No Throat pain, No Throat swelling, No Other Cardiovascular: No Chest Pain, No Palpitations, No Orthopnea, No Paroxysmal Noc. Dyspnea, No Edema, No Lt Headedness, No Other Respiratory: No Cough, No Dry, No Shortness of breath, No SOB with excertion, No Wheezing, No Hemoptysis, No Pleuritic Pain, No Sputum, No Other Gastrointestinal: Nausea, Vomiting, Abdominal Pain; No Diarrhea, No Constipation; Melena; No Hematochezia, No Other Genitourinary: No Dysuria, No Frequency, No Incontinence, No Hematuria, No Retention, No Other Musculoskeletal: No other, No neck pain, No shoulder pain, No arm pain, No back pain, No hand pain, No leg pain, No foot pain Skin: No Rash, No Lesions, No Jaundice, No Bruising, No Other Objective Vitals Vital Signs Date Time Temp Pulse Resp B/P (MAP) Pulse Ox O2 Delivery O2 Flow Rate FiO2 05/26/25 13:15 97.0 88 16 122/81 (95) 98 97.0 05/26/25 08:00 Room Air* 0 21 Intake/Output Intake and Output 05/26/25 07:00 Intake Total 250 ml Balance 250 ml Intake Oral 200 ml IV Total 50 ml # Voids 8 # Bowel Movements 8 Exam HEENT pupils are reactive Neck is supple CV is S1-S2 regular rate and rhythm Respiratory are clear GI positive bowel sound 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 Medications Current Medications Medications Dose Ordered Sig/Annmarie Route Start Time Stop Time Status Last Admin Dose Admin Ceftriaxone Sodium 50 ml @ 100 mls/hr DAILY@09 IV 05/25/25 09:00 05/26/25 09:14 100 MLS/HR Pantoprazole Sodium 40 mg DAILY IV 05/25/25 10:00 05/26/25 09:13 40 MG Diagnostic Test (Pha) 1 strip ACHS 05/24/25 22:00 05/26/25 11:57 1 STRIP Insulin Human Regular ACHS SC 05/24/25 22:00 Dextrose 50 ml UD PRN IV 05/24/25 22:00 Sodium Chloride 10 ml Q8HR IV 05/24/25 22:00 05/26/25 06:22 10 ML Acetaminophen/ Hydrocodone Bitart 1 tab Q4HP PRN PO 05/24/25 22:00 05/25/25 20:56 1 TAB Ondansetron HCl 4 mg Q4HP PRN IV 05/24/25 22:00 05/26/25 00:48 4 MG Docusate Sodium 100 mg BIDPRN PRN PO 05/24/25 22:00 Acetaminophen 650 mg Q6HP PRN PO 05/24/25 22:00 Nitroglycerin 0.4 mg Q5MINP PRN SL 05/24/25 23:30 Morphine Sulfate 2 mg Q30M PRN IV 05/24/25 23:30 Laboratory Results Laboratory Tests 05/25/25 04:47 05/26/25 12:13 Urinalysis Test 05/24/25 18:57 Urine Color Yellow (Yellow) Urine Clarity Cloudy (Clear) H Urine pH 5.5 (5.0-9.0) Urine Specific [place] 1.031 (1.001-1.035) Urine Protein 1+ (Negative) H Urine Ketones 4+ (Negative) H Urine Blood Negative /uL (Negative) Urine Nitrite Negative (Negative) Urine Bilirubin Negative (Negative) Urine Urobilinogen Normal mg/dL (Negative) Urine Leukocyte Esterase 2+ /uL (Negative) Urine RBC 6 /hpf (0 - 4) Urine Microscopic WBC 6 /HPF (0-5) H Urine Squamous Epithelial Cells Few /hpf (<5) Urine Calcium Oxalate Crystals Few (None Seen) Urine Bacteria Few /hpf (None Seen) H Urine Mucus Many (None Seen) Urine Glucose Normal mg/dL (Normal) Microbiology Microbiology Date/Time Source Procedure Growth Status 05/25/25 15:11 Stool Stool Culture - Preliminary Resulted 05/25/25 15:11 Stool Shiga Toxin I & II Pending Resulted 05/25/25 15:11 Stool Clostridium difficile Toxin Assay - Final Resulted 05/24/25 18:57 Voided Urine Urine Culture - Preliminary Resulted Assessment/Plan Assessment/Plan 49-year-old female with a known history of diabetes mellitus type 2, hypertension, dyslipidemia is here for abdominal pain and black tarry stools. 1. Melena ruled out upper GI bleed 2. Abdominal pain with the nausea 3. Diabetes mellitus type 2 4. Hypertension 5. Dyslipidemia. 6. Diarrhea rule out C diff - stool for C diff, scheduled for EGD today -monitor H&H, GI consultation, continue Protonix Plan discussed with: Patient Date of Service: May 26, 2025 Billing Provider: DAVID HOUGH MD Common Visit Codes: [id number] INP/OBS CARE(MOD) DAVID HOUGH MD May 26, 2025 14:20
[2025-05-26] MEDS ORDERED: MIDAZOLAM HCL 2MG/2ML 2ml VIAL (1mg/ml) ONE (14:22)
[2025-05-26] MEDS ORDERED: SODIUM CHLORIDE LOCK 10 ML ONE (14:25)
[2025-05-26] MEDS: LIDOCAINE VISCOUS 2% 15ML UD ONE (15:06)
[2025-05-26] MEDS: fentaNYL CITRATE 100 MCG/2 ML VL ONE (15:10)
[2025-05-26] MEDS: MIDAZOLAM HCL 5 MG/ML-1ML VIAL ONE (15:10)
[2025-05-26] MEDS: diphenhdrAMINE HCL 50 MG/1 ML VL ONE (15:10)
--- NOTE | 2025-05-26 15:22 | DVHOP2 ---
Operative Report DATE OF OPERATION: 05/26/25 PROCEDURE: Upper Endoscopy. PREOPERATIVE INDICATION: The patient is a 49 -year-old female undergoing endoscopy for melena and anemia POSTOPERATIVE DIAGNOSES: 1. Patient had moderate gastroparesis with a moderate amount of retained gastric food contents in the stomach 2. Mild gastroduodenitis otherwise normal examination up to the 2nd and 3rd part of the duodenum with no active bleeding PROCEDURE PERFORMED BY: Drake Lucas GI NURSE: Candace SCOPE: Olympus videoendoscope. ASA CLASS: 2. PREOPERATIVE MEDICATIONS: Versed 3 mg, Fentanyl 75 mcg, Benadryl 50 mg I administered moderate sedation throughout this _8_ minutes procedure. An independent trained observer pushed medications at my direction, and monitored the patient's level of consciousness and physiological status throughout. PROCEDURE IN DETAIL: After obtaining an informed consent, the patient was placed on left lateral decubitus position. The patient was then sedated with the above medications. A bite block was placed between her teeth. The endoscope was then passed through the oropharynx, into the esophagus, and through the stomach and pylorus up to the second and third part of the duodenum. The endoscope was then withdrawn. And 3rd part of the duodenum and the duodenal bulb were normal except for minimal duodenitis. Biopsies were obtained The pre-pyloric area and antrum showed mild gastritis and gastric biopsies were obtained. There was no fresh or old blood in the stomach. On retroflexion and straight on view the patient had moderate gastroparesis with a moderate amount of retained gastric food contents into distal Transition the fundus and cardia were normal. the endoscope was then withdrawn into the distal esophagus where there was no significant hiatal hernia or esopha gitis The remaining distal and proximal esophagus and oropharynx were unremarkable The patient tolerated the procedure well without difficulty. COMPLICATIONS : None SPECIMENS: Duodenal biopsies Gastric biopsies DISPOSITION: Transfer back to the floor Stable PLAN: 1. Await for biopsy result 2. Will place pt on Protonix 40 mg IV daily 3. Start Reglan 5 mg IV q.8 hours 4. DC narcotics pain medications and hold semaglutide if the patient is taking that medicine 5. Outpatient follow up with GI Services for ongoing management DRAKE LUCAS MD May 26, 2025 15:22
[2025-05-26] MEDS: METOCLOPRAMIDE HCL 5MG/ml INJ 2ml VIAL IV SCH (21:13)
[2025-05-27 01:00] VITALS: BP 114/68; PULSE 87; RESP 18; TEMP 98.3; O2SAT 97
[2025-05-27 05:00] VITALS: BP 96/61; PULSE 86; RESP 18; TEMP 98.2; O2SAT 96
[2025-05-27 06:34] LABS: Hematocrit 36.7 % (36.0-46.0); Hemoglobin 12.7 g/dL (12.2-16.2); Mean Corpuscular Hemoglobin 29.4 pg (28.0-32.0); Mean Corpuscular Volume 84.6 fL (80.0-100.0); Nucleated Red Blood Cells % 0.2 %
[2025-05-27 06:42] LABS: Potassium 3.7 mmol/L (3.5-5.1)
[2025-05-27 06:43] LABS: Sodium 143 mmol/L (136-145)
[2025-05-27 06:44] LABS: Calcium 9.2 mg/dL (8.7-10.4)
[2025-05-27 06:49] LABS: BUN/Creatinine Ratio 17.0 (10.0-20.0); Blood Urea Nitrogen 15 mg/dL (9-23); Magnesium 1.8 mg/dL (1.6-2.6)
[2025-05-27 06:56] LABS: Chloride 109 mmol/L (98-107); Glucose 115 mg/dL (74-106)
[2025-05-27 06:59] LABS: Anion Gap 12 (5-15); Carbon Dioxide 22 mmol/L (20-31)
[2025-05-27 08:18] VITALS: PULSE 94; RESP 16; O2SAT 98
[2025-05-27 09:07] VITALS: BP 112/72; PULSE 94; RESP 16; TEMP 98.5; O2SAT 98
[2025-05-27 12:36] VITALS: BP 107/72; PULSE 95; RESP 17; TEMP 98.1; O2SAT 96
[2025-05-27] MEDS ORDERED: PANT40TA2 PO (12:52)
[2025-05-27] MEDS ORDERED: METO5TAB67 PO (13:03)
--- NOTE | 2025-05-27 13:07 | DVHDS2 ---
Discharge Summary Date of Admission May 24, 2025 at 23:16 Date of Discharge: May 27, 2025 Labs/Diagnostic Data: Laboratory Results Test 05/27/25 11:03 05/27/25 05:51 05/25/25 15:11 05/25/25 04:47 POC Glucose 98 mg/dl (70-106) White Blood Count 4.0 10^3/uL (4.4-10.8) Red Blood Count 4.33 10^6/uL (4.0-5.20) Hemoglobin 12.7 g/dL (12.2-16.2) Hematocrit 36.7 % (36.0-46.0) Mean Corpuscular Volume 84.6 fL (80.0-100.0) Mean Corpuscular Hemoglobin 29.4 pg (28.0-32.0) Mean Corpuscular Hemoglobin Concent 34.7 g/dL (32.0-36.0) Red Cell Distribution Width 13.6 % (11.8-14.3) Platelet Count 231 10^3/uL (140-450) Mean Platelet Volume 7.7 fL (6.9-10.8) Neutrophils (%) (Auto) 67.2 % (37.0-80.0) Lymphocytes (%) (Auto) 22.8 % (10.0-50.0) Monocytes (%) (Auto) 8.5 % (0.0-12.0) Eosinophils (%) (Auto) 1.2 % (0.0-7.0) Basophils (%) (Auto) 0.3 % (0.0-2.0) Neutrophils # (Auto) 2.7 10 ^3/uL (1.6-8.6) Lymphocytes # (Auto) 0.9 10 ^3/uL (0.4-5.4) Monocytes # (Auto) 0.3 10 ^3/uL (0-1.3) Eosinophils # (Auto) 0 10 ^3/uL (0-0.8) Basophils # (Auto) 0 10 ^3/uL (0-0.2) Nucleated Red Blood Cells 0.2 % Sodium Level 143 mmol/L (136-145) Potassium Level 3.7 mmol/L (3.5-5.1) Chloride Level 109 mmol/L (98-107) Carbon Dioxide Level 22 mmol/L (20-31) Anion Gap 12 (5-15) Blood Urea Nitrogen 15 mg/dL (9-23) Creatinine 0.88 mg/dL (0.550-1.02) Glomerular Filtration Rate Calc 80 mL/min (>90) BUN/Creatinine Ratio 17.0 (10.0-20.0) Serum Glucose 115 mg/dL (74-106) Hemoglobin A1c 5.5 % A1C (<5.7) Calcium Level 9.2 mg/dL (8.7-10.4) Magnesium Level 1.8 mg/dL (1.6-2.6) Stool Occult Blood Negative (Negative) Stool Occult Blood Sample #3 (Negative) Stool for White Cells None seen Total Bilirubin 0.5 mg/dL (0.2-1.0) Aspartate Amino Transferase (AST) 13 U/L (<34) Alanine Aminotransferase (ALT) 22 U/L (7-40) Alkaline Phosphatase 58 U/L (46-116) Total Protein 6.4 g/dL (5.7-8.2) Albumin 4.3 g/dL (3.2-4.8) Test 05/24/25 18:57 05/24/25 18:12 Urine Color Yellow (Yellow) Urine Clarity Cloudy (Clear) Urine pH 5.5 (5.0-9.0) Urine Specific [place] 1.031 (1.001-1.035) Urine Protein 1+ (Negative) Urine Ketones 4+ (Negative) Urine Blood Negative /uL (Negative) Urine Nitrite Negative (Negative) Urine Bilirubin Negative (Negative) Urine Urobilinogen Normal mg/dL (Negative) Urine Leukocyte Esterase 2+ /uL (Negative) Urine RBC 6 /hpf (0 - 4) Urine Microscopic WBC 6 /HPF (0-5) Urine Squamous Epithelial Cells Few /hpf (<5) Urine Calcium Oxalate Crystals Few (None Seen) Urine Bacteria Few /hpf (None Seen) Urine Mucus Many (None Seen) Urine Glucose Normal mg/dL (Normal) Lactic Acid Level 1.7 mmol/L (0.4-2.0) Lipase 53 U/L (12-53) Other Laboratory Tests 05/27/25 05:51 Brief Hx & Hospital Course: 49-year-old female with a known history of diabetes mellitus type 2, hypertension, dyslipidemia is here for abdominal pain and black tarry stools. Patient was eventually admitted. Patient complaining of diarrhea has been as nausea vomiting which is currently improved. C diff has been ruled out. Patient underwent EGD which shows evidence of gastroduodenitis has been as gastroparesis. Protonix and Reglan was recommended per GI. 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 Patient is currently understand verbalized understanding and agreeable to plan. Patient was recommended not to take Reglan if there are any WOOD SCIENCE PROFESSOR symptoms as I explained to her. Please follow up with the PCP for outpatient gastric emptying study has been as follow up with GI for gastric and duodenal biopsy to make sure there was no cancer. Patient is currently understand verbalized understanding and agreeable to plan. Condition at Discharge: Stable Final Diagnosis/Problems List 49-year-old female with a known history of diabetes mellitus type 2, hypertension, dyslipidemia is here for abdominal pain and black tarry stools. 1. Melena ruled out upper GI bleed status post EGD shows gastro paresis 2. Abdominal pain with the nausea, resolved 3. Diabetes mellitus type 2 , please follow up hemoglobin A1c as an outpatient with the PCP 4. Hypertension 5. Dyslipidemia. 6. Diarrhea ruled out C diff, improved. Discharge Disposition: Home SNF Discharge Will this Physician continue t: No Discharge Instruct/Medications Diet: Cardiac 2g Na,low cholest Diet comment: 1800 ADA diet Activity: No Restrictions, As Tolerated Follow Up/Referral: Follow up with the PCP in one week Follow up with the Dr. Renee Lucas in 1-2 weeks Medications: Protonix, Reglan for three days as prescribed, resume home medications Scheduled Hydroxychloroquine Sulfate (Hydroxychloroquine Sulfat), 1 TAB PO DAILY, (Reported) Levofloxacin Hemihydrate (Levaquin 500 Mg), 1 TAB PO DAILY Metformin Hydrochloride (Metformin Hcl), 1 TAB PO BID, (Reported) Metronidazole (Flagyl), 1 TAB PO TID Ondansetron (Zofran), 1 TAB PO Q6HR Pantoprazole Sodium Sesquihydr (Protonix), 40 MG PO DAILY Scheduled PRN Acetaminophen (Acetaminophen), 500 MG PO Q4HP PRN Loratadine (Claritin Tablet), 1 TAB PO DAILYPRN PRN for allergies, (Reported) Metoclopramide Hcl (Reglan), 5 MG PO Q8HPRN PRN Ondansetron Odt 4MG Tab (Zofran Po), 4 MG PO Q6HP PRN Discharge Statement: "Patient was advised to return to the ER or call 911 if any headaches, dizziness, shortness of breath, chest pain, abdominal pain, bleeding, fevers, or worsening of medical condition. Patient was counseled about treatment plan, medications, possible side effects, patientverbalized understanding. All questions were answered to the best of my ability. This discharge took greater then 30 minutes in planning, reviewing documentation, counseling the patient, and discussing with other team members." ASSESSMENT ASSESSMENT Assessment 49-year-old female with a known history of diabetes mellitus type 2, hypertension, dyslipidemia is here for abdominal pain and black tarry stools. 1. Melena ruled out upper GI bleed status post EGD shows gastro paresis 2. Abdominal pain with the nausea, resolved 3. Diabetes mellitus type 2 , please follow up hemoglobin A1c as an outpatient with the PCP 4. Hypertension 5. Dyslipidemia. 6. Diarrhea ruled out C diff, improved. Date of Service: May 27, 2025 Billing Provider: DAVID HOUGH MD Common Visit Codes: [id number] DISCH DAY >30min DAVID HOUGH MD May 27, 2025 13:06
--- NOTE | 2025-05-27 13:44 | DVHPN2 ---
Progress Note - Dictate Date Seen: May 27, 2025 Medical Necessity Reason Pt with a Central, PICC or Fol: No Subjective No new complaints Patient is resting comfortably Multiple bowel movements recorded There was no bleeding Stool tests were negative for WBC negative for occult blood and negative for C diff and bacterial culture Patient stated she has been on Ozempic recently and that could explain her gastroparesis There was no upper GI bleeding vital signs Vital Sign Date Time Temp Pulse Resp B/P (MAP) Pulse Ox O2 Delivery O2 Flow Rate FiO2 05/27/25 12:36 98.1 95 17 107/72 (84) 96 98.1 05/27/25 08:18 Room Air* 0 21 Total Intake and Output 05/26/25 05/26/25 05/27/25 15:00 23:00 07:00 Intake Total 60 ml 200 ml 200 ml Balance 60 ml 200 ml 200 ml medications Current Medications Medications Dose Ordered Sig/Annmarie Route Start Time Stop Time Status Last Admin Dose Admin Ceftriaxone Sodium 50 ml @ 100 mls/hr DAILY@09 IV 05/25/25 09:00 05/27/25 09:21 100 MLS/HR Pantoprazole Sodium 40 mg DAILY IV 05/25/25 10:00 05/27/25 09:21 40 MG Diagnostic Test (Pha) 1 strip ACHS 05/24/25 22:00 05/27/25 11:18 1 STRIP Insulin Human Regular ACHS SC 05/24/25 22:00 Dextrose 50 ml UD PRN IV 05/24/25 22:00 Sodium Chloride 10 ml Q8HR IV 05/24/25 22:00 05/27/25 06:01 10 ML Acetaminophen/ Hydrocodone Bitart 1 tab Q4HP PRN PO 05/24/25 22:00 05/25/25 20:56 1 TAB Ondansetron HCl 4 mg Q4HP PRN IV 05/24/25 22:00 05/26/25 00:48 4 MG Docusate Sodium 100 mg BIDPRN PRN PO 05/24/25 22:00 Acetaminophen 650 mg Q6HP PRN PO 05/24/25 22:00 Nitroglycerin 0.4 mg Q5MINP PRN SL 05/24/25 23:30 Morphine Sulfate 2 mg Q30M PRN IV 05/24/25 23:30 Metoclopramide HCl 5 mg Q8HR IV 05/26/25 22:00 05/27/25 06:01 5 MG Loperamide HCl 2 mg PRN PRN PO 05/27/25 12:30 UNV objective HEENT pupils are reactive Neck is supple CV is S1-S2 regular rate and rhythm Respiratory are clear GI positive bowel sound 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 daily Consider discontinuing Ozempic or decreasing the dose Reglan 5-10 mg p.o. q.h.s. may also be helpful Patient was advised to stay on a more soft and liquid diet Outpatient follow up with me in 4-6 weeks for ongoing management Plan discussed with: Patient, Other (Family at bedside) DRAKE OSULLIVAN MD May 27, 2025 13:43
[2025-05-27] MEDS: LOPERAMIDE HCL 2 MG CAP/TAB PO PRN (14:11)
== END 2025-05-27 14:30 | disposition home or self-care (01) | DRG 48 ==
LOC: EDBD 17:44 → ER 17:44 → OVERFLOW 23:16 → EAST 05-25 15:36
PROVIDERS: ADMIT Internal Medicine; ATTEND Internal Medicine
PROC: 0DB98ZX Excision of Duodenum, Via Natural or Artificial Opening Endoscopic, Diagnostic (ICD-10-PCS; 2025-05-26)
PROC: 0DB78ZX Excision of Stomach, Pylorus, Via Natural or Artificial Opening Endoscopic, Diagnostic (ICD-10-PCS; 2025-05-26)
PROC: 0DB68ZX Excision of Stomach, Via Natural or Artificial Opening Endoscopic, Diagnostic (ICD-10-PCS; 2025-05-26)
PROC: 0DB98ZX Excision of Duodenum, Via Natural or Artificial Opening Endoscopic, Diagnostic (ICD-10-PCS; principal; 2025-05-26 15:00)
DX: E11.43 Type 2 diabetes mellitus with diabetic autonomic (poly)neuropathy (principal); K76.0 Fatty (change of) liver, not elsewhere classified; E78.5 Hyperlipidemia, unspecified; K31.84 Gastroparesis; K29.70 Gastritis, unspecified, without bleeding; K29.90 Gastroduodenitis, unspecified, without bleeding; N39.0 Urinary tract infection, site not specified; I10 Essential (primary) hypertension; R19.7 Diarrhea, unspecified; Z82.49 Family history of ischemic heart disease and other diseases of the circulatory system; Z83.3 Family history of diabetes mellitus; Z88.6 Allergy status to analgesic agent; Z90.49 Acquired absence of other specified parts of digestive tract; Z79.899 Other long term (current) drug therapy
CPT/HCPCS: 36415; 43239; 74176; 80048; 80053; 81001; 82270; 82962; 83036; 83605; 83690; 83735; 85025; 85048; 87045; 87086; 93005; 96361; 96365; 96375; G0378; J2250; J2405; J2470

== ENCOUNTER → 2025-08-11 | Emergency (ER) | payer MEDICAID ==
[~2025-08-11] VITALS: Ht 165.1 cm; Wt 63.6 kg
[~2025-08-11] MED LIST changes: -LEVO500T91 PO; +METO5TAB67 PO; -METR-344 PO; -ONDA-144 PO; +ONDANSETRON HCL 4 MG/2 ML VIAL IV ONE; +SODIUM CHLORIDE 0.9% 1,000 ML IV ONE
[2025-08-11 19:37] VITALS: BP 125/78; PULSE 94; RESP 19; TEMP 97.9; O2SAT 98
== END | disposition left against medical advice (07) ==
LOC: ER 19:36
DX: R10.9 Unspecified abdominal pain (principal); Z53.21 Procedure and treatment not carried out due to patient leaving prior to being seen by health care provider